=== PATIENT | female | born 1940 | race Caucasian/White ===

== ENCOUNTER 2018-07-11 10:14 | Inpatient (IN) ==
[2018-07-11 11:01] LABS: Basophils % 0.1 %; Eosinophils # 0.1 K/mcL (0.0-0.6); Eosinophils % 1.8 %; Hematocrit 28.9 % (35.3-44.9); Hemoglobin 9.5 g/dL (11.5-15.4); Immature Granulocytes % 0.4 % (0-4); Lymphocytes # 1.3 K/mcL (0.6-4.6); Lymphocytes % 18.6 %; Mean Corpuscular HGB Conc 32.9 g/dL (31.6-35.5); Mean Corpuscular Hemoglobin 26.7 pg (28.0-33.3); Mean Corpuscular Volume 81.2 fL (83.0-100.0); Mean Platelet Volume 11.7 fL (9.4-12.4); Monocytes # 0.7 K/mcL (0.0-1.3); Monocytes % 10.2 %; Neutrophils # 4.9 K/mcL (1.6-8.9); Platelet Count 238 K/mcL (140-400); Red Blood Count 3.56 M/mcL (3.82-4.97); Red Cell Distribution Width 15.7 % (11.5-14.5); Segmented Neutrophils % 68.9 %
--- NOTE | 2018-07-11 11:14 | Emergency Department Note ---
Disposition Clinical Impression: Acute kidney injury Disposition: Admitted As Inpatient Condition: Fair Time of Disposition: 12:13 Recheck wound or abnormal lab - General Chief Complaint: ED Recheck/Abnormal Lab/Rx Stated Complaint: Kidney failure Time Seen by Provider: 07/11/18 10:53 Source: patient Limitations: no limitations Nursing Notes Reviewed: Yes Vital Signs Reviewed: Yes - History of Present Illness HPI Narrative: Nontoxic-appearing 78-year-old female presents for evaluation of abnormal labs. She had laboratory results conveyed to her this morning from 8 lab draw on . Labs showed a BUN of 60, creatinine of 3.08, and a GFR of 15. 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 She complains of some shortness of breath both with exertion as well as at rest but denies any chest pain. She complains of some slight orthopnea, having noticed that she has to sleep with pillows propped behind her head at night. She is also had a 6 pound weight gain over the course of the past one week. She denies any chest pain or productive cough. She is currently being treated for cellulitis of the right lower extremity by her primary care provider with oral Bactrim and Keflex. She had a recent ultrasound of the right lower extremity to rule out a DVT. Pt Subjective Complaint: abnormal lab(s) Description of Abnormal Result: Decreased renal function Associated symptoms: shortness of breath, other (Abdominal distention, orthopnea ) - Related Data Home Medications Medication Instructions Recorded Confirmed Amiodarone [Cordarone] 200 mg PO DAILY 07/11/18 07/11/18 Amlodipine Besylate 10 mg PO DAILY 07/11/18 07/11/18 Apixaban [Eliquis] 5 mg PO BID 07/11/18 07/11/18 Aspirin Enteric Coated [Aspirin EC] 162 mg PO DAILY 07/11/18 07/11/18 Atorvastatin [Lipitor] 40 mg PO HS 07/11/18 07/11/18 Cephalexin [Keflex] 500 mg PO BID 07/11/18 07/11/18 Furosemide [Lasix] 20 mg PO DAILY 07/11/18 07/11/18 Guaifenesin [Mucinex] 600 mg PO DAILY PRN 07/11/18 07/11/18 Insulin ASPART [NovoLOG] 10 units SQ TIDWM 07/11/18 07/11/18 Insulin DETEMIR [Levemir] 26 units SQ HS 07/11/18 07/11/18 Lansoprazole [Prevacid] 30 mg PO DAILY 07/11/18 07/11/18 Oxybutynin Chloride [Ditropan Xl] 10 mg PO DAILY 07/11/18 07/11/18 Sitagliptin Phosphate [Januvia] 50 mg PO HS 07/11/18 07/11/18 Sulfamethoxazole/Trimeth DS 1 tab PO BID 07/11/18 07/11/18 [Bactrim DS] Allergies Allergy/AdvReac Type Severity Reaction Status Date / Time Procaine [From Novocain] Allergy See Verified 07/11/18 11:56 Comments All systems ED: reviewed and negative except as stated. Review of Systems: As Per HPI Constitutional: Denies: fever, chills, weakness, weight change Eyes: Denies: eye pain, eye discharge, vision change ENT ED: Denies: ear pain, throat pain, dental pain, hearing loss, epistaxis, congestion, dysphagia Cardiovascular: Denies: chest pain, palpitations, dyspnea on exertion, edema, syncope Respiratory: Reports: as per HPI, dyspnea. Denies: cough, wheezes, hemoptysis, stridor Gastrointestinal: Denies: abdominal pain, nausea, vomiting, diarrhea, constipation, hematemesis, melena, hematochezia Genitourinary: Reports: as per HPI, other (Difficulty urinating). Denies: dysuria, frequency, hematuria, discharge Musculoskeletal: Denies: back pain, neck pain, arthralgia, myalgia Integumentary: Denies: rash, abrasion, lesions Neurological: Denies: headache, weakness, numbness, paresthesias, confusion, abnormal gait, vertigo Psychiatric: Denies: anxiety, depression, suicidal thoughts, homicidal thoughts , auditory hallucinations, visual hallucinations Endocrine: Denies: fatigue Hematological/Lymphatic: Denies: easy bleeding, easy bruising Allergic/Immunologic: Denies: facial swelling, urticaria Past Medical History - Past Medical History Attestation: Yes The following information was validated with the patient. Source: patient, nursing notes reviewed Medical history: Reports: diabetes, hypertension Psychiatric history: Reports: no psych history - Social History Smoking Status: Never smoker Smokeless Tobacco Status: No Alcohol use: Reports: none Drug use: Reports: none Physical Exam - General Limitations: no limitations General appearance: alert, in no apparent distress - Head Head exam: atraumatic, normocephalic, normal inspection - Eye Eye exam: Present: normal appearance, PERRL, EOMI. Absent: nystagmus - ENT ENT exam: mucous membranes moist - Neck Neck exam: Present: normal inspection, full ROM, trachea midline - Chest Chest inspection: Present: normal inspection, symmetric chest wall rise - Respiratory Respiratory exam: Present: normal lung sounds bilaterally. Absent: respiratory distress, wheezes, stridor, accessory muscle use, prolonged expiratory phase - Cardiovascular Cardiovascular exam: Present: normal rhythm, bradycardia, normal heart sounds - Abdominal Exam Abdominal exam: Present: soft, Non-Tender, normal bowel sounds - Extremities Exam Extremities exam: Present: full ROM, tenderness (Right lower extremity), pedal edema (+2 pretibial edema noted bilaterally) - Expanded Lower Extremity Exam Lower leg exam: Present: normal inspection, erythema (Mild erythema noted distal right leg) - Back Exam Back exam: Present: normal inspection, full ROM. Absent: tenderness - Neurological Exam Neurological exam: Present: alert, oriented X3 - Psychiatric Psychiatric exam: Present: normal affect, normal mood - Skin Skin exam: Present: warm, dry, intact, normal color Course Course Narrative: I have discussed this patient's case with Dr. Brown. Dr. Brown has had a face-to- face evaluation with patient and agrees with admission to the hospitalist service with nephrology consultation. Dr. Alonso accepts the patient for admission to the hospitalist service 1400: Dr. Bishop, powerhouse electrician apprentice fuel verification technician has been made aware of this patient's case and states that he will consult. He does request a renal ultrasound be ordered. 1429: I spoke with Dr. Mota, aeronautical test engineer fuel verification technician. Dr. Mota states that cardiology will evaluate the patient in house as well. Vital Signs Temperature 98.0 F 07/11/18 10:16 Pulse Rate 52 07/11/18 10:16 Respiratory Rate 15 07/11/18 10:16 Blood Pressure 148/66 07/11/18 10:16 O2 Sat by Pulse Oximetry 99 07/11/18 10:16 Temperature 98.0 F 07/11/18 10:27 Pulse Rate 52 08/24/18 10:27 Respiratory Rate 20 07/11/18 14:11 Blood Pressure 138/64 07/11/18 14:11 O2 Sat by Pulse Oximetry 99 07/11/18 10:27 Oxygen Delivery Oxygen Delivery Room Air Recheck wound or abnormal lab - MDM Narrative Medical decision making narrative: The patient's troponin is elevated at 0.04 however she denies any complaints of chest pain. Likely sequelae of her decreased kidney function. - Medical Records Medical records reviewed: Yes I reviewed the patient's medical records. - Lab Data Lab results reviewed: Yes I reviewed the patient's lab results. Lab results narrative: Lab Results 07/11/18 07/11/18 07/11/18 Range/Units 10:52 10:52 11:16 WBC 7.1 (4.3-11.1) K/mcL RBC 3.56 L (3.82-4.97) M/mcL Hgb 9.5 L (11.5-15.4) g/dL Hct 28.9 L (35.3-44.9) % MCV 81.2 L (83.0-100.0) fL MCH 26.7 L (28.0-33.3) pg MCHC 32.9 (31.6-35.5) g/dL RDW 15.7 H (11.5-14.5) % Plt Count 238 (140-400) K/mcL MPV 11.7 (9.4-12.4) fL Immature Gran % 0.4 (0-4) % Seg Neutrophils % 68.9 % Lymphocytes % 18.6 % Monocytes % 10.2 % Eosinophils % 1.8 % Basophils % 0.1 % Neutrophils # 4.9 (1.6-8.9) K/mcL Lymphocytes # 1.3 (0.6-4.6) K/mcL Monocytes # 0.7 (0.0-1.3) K/mcL Eosinophils # 0.1 (0.0-0.6) K/mcL Basophils # 0.0 (0.0-0.2) K/mcL Sodium 128 L (136-145) mEq/L Potassium 5.5 H (3.5-5.1) mEq/L Chloride 100 (98-107) mEq/L Carbon Dioxide 19 L (23-29) mEq/L BUN 62 H (8-23) mg/dL Creatinine 3.42 H (0.60-1.20) mg/dL Est GFR ( Amer) 16 L (> 60) Est GFR (Non-Af Amer) 13 L (> 60) BUN/Creatinine Ratio 18 (6-26) Glucose 77 (70-105) mg/dL Calculated Osmolality 282 (280-300) Calcium 9.1 (8.6-10.3) mg/dL Phosphorus 4.2 (2.7-4.5) mg/dL Magnesium 2.8 H (1.6-2.6) mg/dL Troponin I 0.04 H* (< 0.04) ng/mL B-Natriuretic Peptide 636 H (Less than 100) pg/mL Urine Color (Yellow) Urine Clarity (Clear) Urine pH (5.0-8.0) pH Units Ur Specific [place] (1.010-1.025) Urine Protein (Neg-Trace) mg/dL Urine Glucose (UA) (Normal) mg/dL Urine Ketones (Negative) mg/dL Urine Blood (Negative) Urine Nitrite (Negative) Urine Bilirubin (Negative) Urine Urobilinogen (Normal) mg/dL Ur Leukocyte Esterase (Negative) Ur Culture Indicated? (NO) 07/11/18 Range/Units 12:57 WBC (4.3-11.1) K/mcL RBC (3.82-4.97) M/mcL Hgb (11.5-15.4) g/dL Hct (35.3-44.9) % MCV (83.0-100.0) fL MCH (28.0-33.3) pg MCHC (31.6-35.5) g/dL RDW (11.5-14.5) % Plt Count (140-400) K/mcL MPV (9.4-12.4) fL Immature Gran % (0-4) % Seg Neutrophils % % Lymphocytes % % Monocytes % % Eosinophils % % Basophils % % Neutrophils # (1.6-8.9) K/mcL Lymphocytes # (0.6-4.6) K/mcL Monocytes # (0.0-1.3) K/mcL Eosinophils # (0.0-0.6) K/mcL Basophils # (0.0-0.2) K/mcL Sodium (136-145) mEq/L Potassium (3.5-5.1) mEq/L Chloride (98-107) mEq/L Carbon Dioxide (23-29) mEq/L BUN (8-23) mg/dL Creatinine (0.60-1.20) mg/dL Est GFR ( Amer) (> 60) Est GFR (Non-Af Amer) (> 60) BUN/Creatinine Ratio (6-26) Glucose (70-105) mg/dL Calculated Osmolality (280-300) Calcium (8.6-10.3) mg/dL Phosphorus (2.7-4.5) mg/dL Magnesium (1.6-2.6) mg/dL Troponin I (< 0.04) ng/mL B-Natriuretic Peptide (Less than 100) pg/mL Urine Color Yellow (Yellow) Urine Clarity Clear (Clear) Urine pH 6.0 (5.0-8.0) pH Units Ur Specific [place] 1.016 (1.010-1.025) Urine Protein Negative (Neg-Trace) mg/dL Urine Glucose (UA) Normal (Normal) mg/dL Urine Ketones Negative (Negative) mg/dL Urine Blood Negative (Negative) Urine Nitrite Negative (Negative) Urine Bilirubin Negative (Negative) Urine Urobilinogen Normal (Normal) mg/dL Ur Leukocyte Esterase Negative (Negative) Ur Culture Indicated? NO (NO) Result diagrams: 07/11/18 10:52 07/11/18 10:52 Lab Results 07/11/18 07/11/18 07/11/18 Range/Units 10:52 10:52 11:16 WBC 7.1 (4.3-11.1) K/mcL RBC 3.56 L (3.82-4.97) M/mcL Hgb 9.5 L (11.5-15.4) g/dL Hct 28.9 L (35.3-44.9) % MCV 81.2 L (83.0-100.0) fL MCH 26.7 L (28.0-33.3) pg MCHC 32.9 (31.6-35.5) g/dL RDW 15.7 H (11.5-14.5) % Plt Count 238 (140-400) K/mcL MPV 11.7 (9.4-12.4) fL Immature Gran % 0.4 (0-4) % Seg Neutrophils % 68.9 % Lymphocytes % 18.6 % Monocytes % 10.2 % Eosinophils % 1.8 % Basophils % 0.1 % Neutrophils # 4.9 (1.6-8.9) K/mcL Lymphocytes # 1.3 (0.6-4.6) K/mcL Monocytes # 0.7 (0.0-1.3) K/mcL Eosinophils # 0.1 (0.0-0.6) K/mcL Basophils # 0.0 (0.0-0.2) K/mcL Sodium 128 L (136-145) mEq/L Potassium 5.5 H (3.5-5.1) mEq/L Chloride 100 (98-107) mEq/L Carbon Dioxide 19 L (23-29) mEq/L BUN 62 H (8-23) mg/dL Creatinine 3.42 H (0.60-1.20) mg/dL Est GFR ( Amer) 16 L (> 60) Est GFR (Non-Af Amer) 13 L (> 60) BUN/Creatinine Ratio 18 (6-26) Glucose 77 (70-105) mg/dL Calculated Osmolality 282 (280-300) Calcium 9.1 (8.6-10.3) mg/dL Phosphorus 4.2 (2.7-4.5) mg/dL Magnesium 2.8 H (1.6-2.6) mg/dL Troponin I 0.04 H* (< 0.04) ng/mL B-Natriuretic Peptide 636 H (Less than 100) pg/mL Urine Color (Yellow) Urine Clarity (Clear) Urine pH (5.0-8.0) pH Units Ur Specific [place] (1.010-1.025) Urine Protein (Neg-Trace) mg/dL Urine Glucose (UA) (Normal) mg/dL Urine Ketones (Negative) mg/dL Urine Blood (Negative) Urine Nitrite (Negative) Urine Bilirubin (Negative) Urine Urobilinogen (Normal) mg/dL Ur Leukocyte Esterase (Negative) Ur Culture Indicated? (NO) 07/11/18 Range/Units 12:57 WBC (4.3-11.1) K/mcL RBC (3.82-4.97) M/mcL Hgb (11.5-15.4) g/dL Hct (35.3-44.9) % MCV (83.0-100.0) fL MCH (28.0-33.3) pg MCHC (31.6-35.5) g/dL RDW (11.5-14.5) % Plt Count (140-400) K/mcL MPV (9.4-12.4) fL Immature Gran % (0-4) % Seg Neutrophils % % Lymphocytes % % Monocytes % % Eosinophils % % Basophils % % Neutrophils # (1.6-8.9) K/mcL Lymphocytes # (0.6-4.6) K/mcL Monocytes # (0.0-1.3) K/mcL Eosinophils # (0.0-0.6) K/mcL Basophils # (0.0-0.2) K/mcL Sodium (136-145) mEq/L Potassium (3.5-5.1) mEq/L Chloride (98-107) mEq/L Carbon Dioxide (23-29) mEq/L BUN (8-23) mg/dL Creatinine (0.60-1.20) mg/dL Est GFR ( Amer) (> 60) Est GFR (Non-Af Amer) (> 60) BUN/Creatinine Ratio (6-26) Glucose (70-105) mg/dL Calculated Osmolality (280-300) Calcium (8.6-10.3) mg/dL Phosphorus (2.7-4.5) mg/dL Magnesium (1.6-2.6) mg/dL Troponin I (< 0.04) ng/mL B-Natriuretic Peptide (Less than 100) pg/mL Urine Color Yellow (Yellow) Urine Clarity Clear (Clear) Urine pH 6.0 (5.0-8.0) pH Units Ur Specific [place] 1.016 (1.010-1.025) Urine Protein Negative (Neg-Trace) mg/dL Urine Glucose (UA) Normal (Normal) mg/dL Urine Ketones Negative (Negative) mg/dL Urine Blood Negative (Negative) Urine Nitrite Negative (Negative) Urine Bilirubin Negative (Negative) Urine Urobilinogen Normal (Normal) mg/dL Ur Leukocyte Esterase Negative (Negative) Ur Culture Indicated? NO (NO) - Radiology Data Radiology results reviewed: Yes I reviewed the patient's radiology results. Chest X-Ray 07/11/18 11:06 IMPRESSION: No acute cardiopulmonary process identified. D/ / Sal Bartlett MD / Sal Bartlett MD Interpreting Provider: Sal Bartlett MD - EKG Data EKG attestation: Yes I reviewed and interpreted this EKG. EKG results narrative: EKG reviewed by Dr. Brown as well. EKG shows a sinus bradycardia with a right bundle branch block at a rate of 47 bpm. UT interval 190, QRS duration 151, QT/ QTc interval 497/440. No ectopy noted. I see elevation. No significant changes when compared to an EKG dated from 05/11/16.
[2018-07-11 11:20] LABS: Calcium 9.1 mg/dL (8.6-10.3); Magnesium 2.8 mg/dL (1.6-2.6); Phosphorous 4.2 mg/dL (2.7-4.5); Potassium 5.5 mEq/L (3.5-5.1)
[2018-07-11 11:42] LABS: Troponin I 0.04 ng/mL (< 0.04)
[2018-07-11] MEDS ORDERED: Insulin Human Regular 10 UNIT in 0.9 % Sodium Chloride 10 ML IV ONE (11:50)
--- NOTE | 2018-07-11 11:52 | Emergency Department Note ---
Disposition Clinical Impression: Acute kidney injury Disposition: Admitted As Inpatient Condition: Fair Referrals: Benny Pabon DO [Primary Care Provider] - Forms: ED Satisfaction Letter General Adult HPI - General Chief complaint: ED Recheck/Abnormal Lab/Rx Stated complaint: Kidney failure Time Seen by Provider: 07/11/18 10:53 Source: patient Limitations: no limitations - History of Present Illness Pain Scale: 0 - Related Data Home Medications Medication Instructions Recorded Confirmed Amiodarone [Cordarone] 200 mg PO DAILY 07/11/18 07/11/18 Amlodipine Besylate 10 mg PO DAILY 07/11/18 07/11/18 Apixaban [Eliquis] 5 mg PO BID 07/11/18 07/11/18 Aspirin Enteric Coated [Aspirin EC] 162 mg PO DAILY 07/11/18 07/11/18 Atorvastatin [Lipitor] 40 mg PO HS 07/11/18 07/11/18 Cephalexin [Keflex] 500 mg PO BID 07/11/18 07/11/18 Furosemide [Lasix] 20 mg PO DAILY 07/11/18 07/11/18 Guaifenesin [Mucinex] 600 mg PO DAILY PRN 07/11/18 07/11/18 Insulin ASPART [NovoLOG] 10 units SQ TIDWM 07/11/18 07/11/18 Insulin DETEMIR [Levemir] 26 units SQ HS 07/11/18 07/11/18 Lansoprazole [Prevacid] 30 mg PO DAILY 07/11/18 07/11/18 Oxybutynin Chloride [Ditropan Xl] 10 mg PO DAILY 07/11/18 07/11/18 Sitagliptin Phosphate [Januvia] 50 mg PO HS 07/11/18 07/11/18 Sulfamethoxazole/Trimeth DS 1 tab PO BID 07/11/18 07/11/18 [Bactrim DS] Allergies Allergy/AdvReac Type Severity Reaction Status Date / Time Procaine [From Novocain] Allergy See Verified 07/11/18 11:56 Comments Constitutional: Denies: fever, chills, weakness, weight change Eyes: Denies: eye pain, eye discharge, vision change ENT ED: Denies: ear pain, throat pain, dental pain, hearing loss, epistaxis, congestion, dysphagia Cardiovascular: Denies: chest pain, palpitations, dyspnea on exertion, edema, syncope Respiratory: Reports: as per HPI, dyspnea. Denies: cough, wheezes, hemoptysis, stridor Gastrointestinal: Denies: abdominal pain, nausea, vomiting, diarrhea, constipation, hematemesis, melena, hematochezia Genitourinary: Reports: as per HPI, other (Difficulty urinating). Denies: dysuria, frequency, hematuria, discharge Musculoskeletal: Denies: back pain, neck pain, arthralgia, myalgia Integumentary: Denies: rash, abrasion, lesions Neurological: Denies: headache, weakness, numbness, paresthesias, confusion, abnormal gait, vertigo Psychiatric: Denies: anxiety, depression, suicidal thoughts, homicidal thoughts , auditory hallucinations, visual hallucinations Endocrine: Denies: fatigue Hematological/Lymphatic: Denies: easy bleeding, easy bruising Allergic/Immunologic: Denies: facial swelling, urticaria Past Medical History - Past Medical History Medical history: Reports: diabetes, hypertension Psychiatric history: Reports: no psych history - Social History Smoking Status: Never smoker Smokeless Tobacco Status: No Alcohol use: Reports: none Drug use: Reports: none Physical Exam - General Limitations: no limitations General appearance: alert, in no apparent distress Course Vital Signs Temperature 98.0 F 07/11/18 10:16 Pulse Rate 52 07/11/18 10:16 Respiratory Rate 15 07/11/18 10:16 Blood Pressure 148/66 07/11/18 10:16 O2 Sat by Pulse Oximetry 99 07/11/18 10:16 Temperature 98.0 F 07/11/18 10:27 Pulse Rate 52 07/11/18 10:27 Respiratory Rate 15 07/11/18 10:27 Blood Pressure 148/66 07/11/18 10:27 O2 Sat by Pulse Oximetry 99 07/11/18 10:27 Oxygen Delivery Oxygen Delivery Room Air Medical Decision Making - Lab Data Result diagrams: 07/11/18 10:52 07/11/18 10:52 Lab Results 07/11/18 07/11/18 07/11/18 Range/Units 10:52 10:52 11:16 WBC 7.1 (4.3-11.1) K/mcL RBC 3.56 L (3.82-4.97) M/mcL Hgb 9.5 L (11.5-15.4) g/dL Hct 28.9 L (35.3-44.9) % MCV 81.2 L (83.0-100.0) fL MCH 26.7 L (28.0-33.3) pg MCHC 32.9 (31.6-35.5) g/dL RDW 15.7 H (11.5-14.5) % Plt Count 238 (140-400) K/mcL MPV 11.7 (9.4-12.4) fL Immature Gran % 0.4 (0-4) % Seg Neutrophils % 68.9 % Lymphocytes % 18.6 % Monocytes % 10.2 % Eosinophils % 1.8 % Basophils % 0.1 % Neutrophils # 4.9 (1.6-8.9) K/mcL Lymphocytes # 1.3 (0.6-4.6) K/mcL Monocytes # 0.7 (0.0-1.3) K/mcL Eosinophils # 0.1 (0.0-0.6) K/mcL Basophils # 0.0 (0.0-0.2) K/mcL Sodium 128 L (136-145) mEq/L Potassium 5.5 H (3.5-5.1) mEq/L Chloride 100 (98-107) mEq/L Carbon Dioxide 19 L (23-29) mEq/L BUN 62 H (8-23) mg/dL Creatinine 3.42 H (0.60-1.20) mg/dL Est GFR ( Amer) 16 L (> 60) Est GFR (Non-Af Amer) 13 L (> 60) BUN/Creatinine Ratio 18 (6-26) Glucose 77 (70-105) mg/dL Calculated Osmolality 282 (280-300) Calcium 9.1 (8.6-10.3) mg/dL Phosphorus 4.2 (2.7-4.5) mg/dL Magnesium 2.8 H (1.6-2.6) mg/dL Troponin I 0.04 H* (< 0.04) ng/mL B-Natriuretic Peptide 636 H (Less than 100) pg/mL Urine Color (Yellow) Urine Clarity (Clear) Urine pH (5.0-8.0) pH Units Ur Specific [place] (1.010-1.025) Urine Protein (Neg-Trace) mg/dL Urine Glucose (UA) (Normal) mg/dL Urine Ketones (Negative) mg/dL Urine Blood (Negative) Urine Nitrite (Negative) Urine Bilirubin (Negative) Urine Urobilinogen (Normal) mg/dL Ur Leukocyte Esterase (Negative) Ur Culture Indicated? (NO) 07/11/18 Range/Units 12:57 WBC (4.3-11.1) K/mcL RBC (3.82-4.97) M/mcL Hgb (11.5-15.4) g/dL Hct (35.3-44.9) % MCV (83.0-100.0) fL MCH (28.0-33.3) pg MCHC (31.6-35.5) g/dL RDW (11.5-14.5) % Plt Count (140-400) K/mcL MPV (9.4-12.4) fL Immature Gran % (0-4) % Seg Neutrophils % % Lymphocytes % % Monocytes % % Eosinophils % % Basophils % % Neutrophils # (1.6-8.9) K/mcL Lymphocytes # (0.6-4.6) K/mcL Monocytes # (0.0-1.3) K/mcL Eosinophils # (0.0-0.6) K/mcL Basophils # (0.0-0.2) K/mcL Sodium (136-145) mEq/L Potassium (3.5-5.1) mEq/L Chloride (98-107) mEq/L Carbon Dioxide (23-29) mEq/L BUN (8-23) mg/dL Creatinine (0.60-1.20) mg/dL Est GFR ( Amer) (> 60) Est GFR (Non-Af Amer) (> 60) BUN/Creatinine Ratio (6-26) Glucose (70-105) mg/dL Calculated Osmolality (280-300) Calcium (8.6-10.3) mg/dL Phosphorus (2.7-4.5) mg/dL Magnesium (1.6-2.6) mg/dL Troponin I (< 0.04) ng/mL B-Natriuretic Peptide (Less than 100) pg/mL Urine Color Yellow (Yellow) Urine Clarity Clear (Clear) Urine pH 6.0 (5.0-8.0) pH Units Ur Specific [place] 1.016 (1.010-1.025) Urine Protein Negative (Neg-Trace) mg/dL Urine Glucose (UA) Normal (Normal) mg/dL Urine Ketones Negative (Negative) mg/dL Urine Blood Negative (Negative) Urine Nitrite Negative (Negative) Urine Bilirubin Negative (Negative) Urine Urobilinogen Normal (Normal) mg/dL Ur Leukocyte Esterase Negative (Negative) Ur Culture Indicated? NO (NO) Critical Care Time Critical Care Time: Yes Total Critical Care Time: 40 Attestation: Critical care performed: Time is exclusive of separately billable procedures. Time includes: direct patient care, patient reassessment, coordination of patient care, interpretation of data (laboratory data, radiology data, and respiratory data), review of patient's medical records, medical consultation and documentation of patient care. Procedures included in critical care time: Procedures excluded from critical care time: Attestation Statement - Attestation Attestation: or this encounter, I have reviewed the FREEZER TUNNEL OPERATOR or PA documentation, treatment plan, and medical decision making; and I have had face to face time with this patient Patient presents to the ED with abnormal labs. Patient had outpatient labs drawn by her PCP that showed her GFR low. On examination she has not in any acute distress. Heart slow but regular. Lungs clear. She does have some bilateral lower extremities edema. Plan. The patient's GFR is low. Her potassium is slightly elevated. Her EKG shows sinus bradycardia. QRS widening. We will treat the hyperkalemia. We will discuss with nephrology. Patient will be admitted to medicine. I discussed this patient with Dr. Bishop ordnance truck installation mechanic for nephrology. He will evaluate the patient. No further questions at this time other than a renal ultrasound. Chest X-Ray 07/11/18 11:06 IMPRESSION: No acute cardiopulmonary process identified. D/ / Sal Bartlett MD / Sal Bartlett MD Interpreting Provider: Sal Bartlett MD For this encounter, I have reviewed the FREEZER TUNNEL OPERATOR or PA documentation, treatment plan, and medical decision making; and I have had face to face time with this patient.
[2018-07-11] MEDS: *HR* Dextrose 50 % in Water (Syg) 50 ML SYRINGE IVP ONE ×2 (13:02→15:45)
[2018-07-11 13:11] LABS: Bilirubin,Urine Negative (Negative); Blood,Urine Negative (Negative); Clarity,Urine Clear (Clear); Color,Urine Yellow (Yellow); Glucose,Urine (UA) Normal (Normal); Ketones,Urine Negative (Negative); Leukocyte Esterase,Urine Negative (Negative); Nitrite,Urine Negative (Negative); Protein,Urine Negative (Neg-Trace); Specific Gravity,Urine 1.016 (1.010-1.025); Urobilinogen,Urine Normal (Normal)
[2018-07-11] MEDS ORDERED: Furosemide 40 MG/4 ML VIAL IVP ONE (13:12)
[2018-07-11] MEDS ORDERED: Naloxone 0.4 MG/ML INJ IVP PRN (14:45)
[2018-07-11] MEDS ORDERED: *HR* Heparin 5,000 UNIT/ML VIAL IVP PRN ×2 (15:05)
[2018-07-11] MEDS ORDERED: *HR* Heparin 5,000 UNIT/ML VIAL IVP ONE (15:05)
--- NOTE | 2018-07-11 15:07 | Nephrology Progress Note ---
Date of Encounter: 07/11/18 Time of Encounter: 15:00 - Assessment and Plan (1) Acute kidney injury Current Visit: Yes Status: Acute 78F with PMHx HTN, DM type 2, CABG, on amiodarone presents with NORBERT. SCr 3.42, baseline of 1.1 UA is unremarkable Patient on lasix at home, she is also hyponatremic and hyperkalemic Gentle hydration with 500ml at 75ml/hr No emergent need for HD at this time, but if kidney function continues to deteriorate, she might require temporary HD Pending repeat echo. pending urine osm, Na, Cr, eosinophils. (2) Hyponatremia Current Visit: Yes Status: Acute Asymptomatic. Hypokalemia of 128. Unknown etiology. We will obtain serum osm, urine osm, Na, Cr. Gentle hydration with 500ml bolus at 75ml/hr Recheck Na q2 hours (3) Hyperkalemia Current Visit: Yes Status: Acute Gentle hydration with 500ml at 75ml/hr See above. Subjective Principal diagnosis: Abnormal labs Interval history: 78F with PMHx of HTN, diabetes type II on insulin, CABG without stents on 2017 on Eloquis, A. nicola on amiodarone presents to ED after abnormal outpatient labs. Labs demonstrated declined kidney function with BUN 60, Creatinine 3.08, and GFR 15, and she was advised to come to the ED. Patient reports that she has experienced worsening SOB and difficulty with voiding since her CABG. She also admits to nausea, vomiting, fatigue, 6lb weight gain over the past week. Denies history of liver disease, kidney disease, cancer, or other recent surgeries aside from her CABG. She takes lasix at home for lower extremity edema. Denies side effects with medication. She started her amiodarone in Mar, 2018, after her CABG reports decreased heart rate since then. In addition, she is currently on Bactrim and Keflex for right lower extremity cellulitus. She also reports that her diabetes is well controlled with insulin. At ED, CXR is unremarkable. EKG demonstrates bradycardia with RBBB, AV block, QT prolongation. Denies confusion, headaches, chest pain, palpitations, productive cough, abdominal pain, diarrhea, abnormal bleeding. Does admit to feeling dehydrated and poor appetite. Objective - Vital Signs Vital signs: Vital Signs Pulse Resp BP Pulse Ox 07/11/18 14:30 55 16 149/44 97 08/24/18 14:11 20 138/64 - General Appearance Exam: General appearance: alert, in no apparent distress - Head Head exam: atraumatic, normocephalic, normal inspection - Eye Eye exam: Present: normal appearance, EOMI. Absent: nystagmus - ENT ENT exam: mucous membranes moist - Neck Neck exam: Present: normal inspection, full ROM, trachea midline - Chest Chest inspection: Present: normal inspection, symmetric chest wall rise - Respiratory Respiratory exam: Present: normal lung sounds bilaterally. Absent: respiratory distress, wheezes, stridor, accessory muscle use, prolonged expiratory phase - Cardiovascular Cardiovascular exam: Present: normal rhythm, bradycardia, normal heart sounds. systolic murmur appreciated. - Abdominal Exam Abdominal exam: Present: soft, Non-Tender, normal bowel sounds, no guarding - Extremities Exam Extremities exam: Present: full ROM, tenderness (Right lower extremity), pedal edema (+2 pretibial edema noted bilaterally) - Expanded Lower Extremity Exam Lower leg exam: Present: normal inspection, erythema (Mild erythema noted distal right leg) - Back Exam Back exam: Present: normal inspection, full ROM. Absent: tenderness - Neurological Exam Neurological exam: Present: alert, oriented X3 - Psychiatric Psychiatric exam: Present: normal affect, normal mood - Skin Skin exam: Present: warm, dry, intact, normal color - Lab 07/11/18 10:52 07/11/18 10:52 Most recent lab results Calcium 9.1 mg/dL (8.6-10.3) 07/11/18 10:52 Phosphorus 4.2 mg/dL (2.7-4.5) 07/11/18 10:52 Magnesium 2.8 mg/dL (1.6-2.6) H 07/11/18 10:52 Consult Discharge Plan - Plan Referrals: Benny Pabon DO [Primary Care Provider] -
[2018-07-11] MEDS ORDERED: Heparin 25,000 UNIT/500 ML D5W 25,000 UNIT/500 ML BAG IVC SCH (15:15)
[2018-07-11] MEDS ORDERED: *HR* Dextrose 50 % in Water (Syg) 50 ML SYRINGE ONE (15:26)
--- NOTE | 2018-07-11 15:39 | Cardiology Consult Note ---
<MancillaJohnny S - Last Filed: 07/11/18 16:46> Date of Encounter: 07/11/18 Time of Encounter: 15:33 Assessment and Plan (1) Amiodarone toxicity Current Visit: Yes Status: Deleted Pt started on Amiodarone in february for a fib -currently in sinus rhythm -bracycardic, HR 55, pt c/o no palpiltations or chest pain s/s of weakness, N/V, feeling off balance, which is consistent with amiodarone toxicity CXR showed no signs of pulmonary toxicity -The mediastinal and cardiac contours are stable. The lungs are clear. There is no focal consolidation, pleural effusion or pneumothorax evident. The bones are unremarkable. Plan: -telemetry monitoring -stop amiodarone -will update with attending recommendations -check a TSH, LFT's Qualifiers: Encounter type: initial encounter Injury intent: accidental or unintentional Qualified Code(s): T46.2X1A - Poisoning by other antidysrhythmic drugs, accidental (unintentional), initial encounter (2) Acute kidney injury Current Visit: Yes Status: Acute Pt was admitted due to abnormal labs after going to the doctor on saturday. -was being empirically tx for cellulitis for LE swelling and redness with kephlax and tmp smx. pt only urinating 1x daily right now -potassium of 5.5, sodium 128 -creatinine 3.42 on admission, baseline is 1.1 -BUN 16 -GFR 13 on admission UA is unremarkable NORBERT can be due to TMP SMX or kephlex. Pt has never used bactrim before and will r/o AIN Plan: -insert mendoza cath -strict I&O's -check CK -check urine eosinophils -check serum osmolality -check urine sodium -diuresis as per nephrology -will follow hemodialysis recommendations as per nephrology (3) Elevated troponin Current Visit: Yes Status: Acute Troponin of 0.04 on admission -most likely secondary to NORBERT -pt has no c/o active chest pain, palpiltations, SOB Plan: -ECHO pending -trend troponins -cardiac monitoring -monitor I&O's (4) HTN (hypertension) Current Visit: No Status: Chronic BP of 115/62 on admission -adequate control Plan: -continue home amlodipine Qualifiers: Hypertension type: essential hypertension Qualified Code(s): I10 - Essential (primary) hypertension Discussion w patient/family: The assessment and plan as outlined above was discussed with the patient and/or family members who expressed understanding and agreement. All questions were answered. Thank you for involving us in the care of your patient. Please call with any questions. History of Present Illness Consult date: 07/11/18 Requesting physician: Zachariah Zimmerman Consult reason: bradycardia, on amiodarone Chief complaint: "abnormal labs" History of present illness: Ms. Powell is a 78 year old female with PMH of HTN, T2DM, paroxysmal a fib, and is s/p triple bypass at [facility] in February. The pt was admitted due to abnormal labs after going to the doctor on saturday. He called her to tell her that her labs were abnormal and that she should come to the hospital. The pt is seen by Dr. Shah as her PCP. The daughter tells me that the PCP thought the pt was having blood clots, which were ruled out on ultrasound. The pt was being empirically tx for cellulitis for LE swelling and redness with kephlax and tmp smx. The pt has had multiple episodes of nausea and vomiting without blood over the last few days. She has been falling multiple times as well the last week and has been confused before the falls. She is very inactive and hardly moves according to the daughter. The falls are due to imbalance, not syncope. She is only urinating 1 x daily right now. The pt has never had a cardiac workup. -no hx of stress test, ECHO -the pt reportedly had "3 heart attacks" the night before her CABG The pt is on Amiodarone for pA fib. The daughter states the pt hasn't complained of any cardiac related s/s, such as chest pain, palpiltations, syncope, presyncope, PND, orthopnea. Fluids - given D50, glucose in the 40's; 75cc/hr NS Electrolytes - sodium 128, potassium 5.5 Nutritoin -cardiac/diabetic/renal diet DVT prophylaxis - on eliquis GI prophylais - on lansoprazole Past Med Surg Social Fam HX - Past Medical History Medical history: diabetes, hypertension Psychiatric history: no psych history - Past Surgical History Additional surgical history: triple bypass - Social History Smoking Status: Never smoker Smokeless Tobacco Status: No Alcohol use: none Drug use: none - Family History Father History Unknown: Yes Medications and Allergies Amiodarone [Cordarone] 200 mg PO DAILY 07/11/18 [History] Amlodipine Besylate 10 mg PO DAILY 07/11/18 [History] Apixaban [Eliquis] 5 mg PO BID 07/11/18 [History] Aspirin Enteric Coated [Aspirin EC] 162 mg PO DAILY 07/11/18 [History] Atorvastatin [Lipitor] 40 mg PO HS 07/11/18 [History] Cephalexin [Keflex] 500 mg PO BID 07/11/18 [History] Furosemide [Lasix] 20 mg PO DAILY 07/11/18 [History] Guaifenesin [Mucinex] 600 mg PO DAILY PRN 07/11/18 [History] Insulin ASPART [NovoLOG] 10 units SQ TIDWM 07/11/18 [History] Insulin DETEMIR [Levemir] 26 units SQ HS 07/11/18 [History] Lansoprazole [Prevacid] 30 mg PO DAILY 07/11/18 [History] Oxybutynin Chloride [Ditropan Xl] 10 mg PO DAILY 07/11/18 [History] Sitagliptin Phosphate [Januvia] 50 mg PO HS 07/11/18 [History] Sulfamethoxazole/Trimeth DS [Bactrim DS] 1 tab PO BID 07/11/18 [History] 3 Allergy/AdvReac Type Severity Reaction Status Date / Time Procaine [From Novocain] Allergy See Verified 07/11/18 11:56 Comments All Systems Review: The remainder of the systems were reviewed and are negative - Constitutional Constitutional: fatigue, weakness, no fever(s) - EENT Nose, mouth and throat: epistaxis - Cardiovascular Cardiovascular: leg edema, lightheadedness, slow heart rate, no chest pain at rest, no chest pain with exertion, no dyspnea at rest, no dyspnea on exertion, no irregular heart rhythm, no orthopnea, no palpitations, no paroxysmal nocturnal dyspnea, no syncope - Respiratory Respiratory: no cough, no dyspnea - Gastrointestinal Gastrointestinal: no abdominal pain, no diarrhea, no melena - Genitourinary Genitourinary: no dysuria, no hematuria - Neurological Neurological: dizziness, focal weakness, no numbness, no syncope, no tingling - Hematological/Lymphatic Hematologic/Lymphatic: easy bleeding Physical Examination Vital Signs, Last 4 Hours Pulse Resp BP Pulse Ox 07/11/18 14:30 55 16 149/44 97 07/11/18 14:11 20 138/64 General: Conversant HEENT: Atraumatic, Normocephaly Neck: No JVD Cardiac: Normal S1 and S2, Other (bradycardic) Lungs: Normal Breath Sounds, No Wheeze, Rales, Rhonchi Neuro: Alert and responsive Abdomen: Soft, Non-Tender Skin: Other (right leg cellulitis) Musculoskeletal: No Chest Wall Tenderness Extremities: Other (1+ pitting LE edema B/L) Results 07/11/18 10:52 07/11/18 10:52 Consult Discharge Plan - Plan Referrals: Benny Pabon DO [Primary Care Provider] - <Patricia Mota - Last Filed: 07/11/18 18:54> Date of Encounter: 07/11/18 - Attending Attestation I examined this patient and my medical decision-making was reviewed with the Resident Physician. I agree with the documented findings, disposition and treatment plan as described except to the extent set forth below. 78F presenting with acute onset of weakness and fatigue in setting of metabolic derangement. Taking Bactrim and Keflex as outpatient for cellulitis. Now presenting with acute renal failure, GFR 13 and hyperkalemia. ECG demonstrates SB with normal intervals and no acute findings. Telemetry demonstrates average HR 46 bpm without pauses. Patient states that she is feeling better. NAD, AAOx3. Hemodynamically stable. Soft systolic murmur on exam. Impression/Plan: 1. Bradycardia - heart rate 40s with otherwise normal findings on ECG and no pauses on telemetry. Suspect electrical disturbance in part secondary to acute renal failure with severely reduced GFR and hyperkalemia. She was on Abx for cellulitis that may have caused ARF. Previously on Amiodarone since February 2018 for post op AFIB doing well on this medication. Do not suspect that amiodarone is the primary culprit in her clinical presentation. The patient already reports feeling better despite amiodarone still systemically present. However, incidentally found are elevated LFTs and abnormal TSH. It is reasonable to stop this medication at this time. She has an upcoming appointment to establish with [facility]. 2. PAF: Post op after bypass. Patient placed on amio and Eliquis. Amiodarone is being stopped. Eliquis will need to be help given ARF. Continue aspirin for now. Can consider restarting Eliquis when renal function normalizes. No further recommendations at this time. Please call with questions. Will sign off. Assessment and Plan Discussion w patient/family: The assessment and plan as outlined above was discussed with the patient and/or family members who expressed understanding and agreement. All questions were answered. Thank you for involving us in the care of your patient. Please call with any questions. History of Present Illness History of present illness: Ms. Powell is a 78 year old female All Systems Review: The remainder of the systems were reviewed and are negative Results 07/11/18 16:33 07/11/18 16:33
--- NOTE | 2018-07-11 15:53 | Nephrology Consult Note ---
Date of Encounter: 07/11/18 Time of Encounter: 14:30 Assessment and Plan (1) Acute kidney injury Current Visit: Yes Status: Acute 78F with PMHx HTN, DM type 2, CABG, on amiodarone presents with NORBERT. SCr 3.42, baseline of 1.1 UA is unremarkable Patient on lasix at home, she is also hyponatremic and hyperkalemic. Hold lasix for now. Gentle hydration with 500ml at 75ml/hr No emergent need for HD at this time, but if kidney function continues to deteriorate, she might require temporary HD Pending repeat echo. pending urine osm, Na, Cr, eosinophils. (2) Hyponatremia Current Visit: Yes Status: Acute Asymptomatic. Hypokalemia of 128. Unknown etiology. We will obtain serum osm, urine osm, Na, Cr. Gentle hydration with 500ml bolus at 75ml/hr Recheck Na q2 hours (3) Hyperkalemia Current Visit: Yes Status: Acute Gentle hydration with 500ml at 75ml/hr See above. (4) History of atrial fibrillation Current Visit: Yes Status: Acute History of A. fib on amiodarone. s/p CABG w/o stents on Eloquis. Cardiology consulted and recommendations appreciated. History of Present Illness - Reason for Consult Consult date: 07/11/18 Acute Kidney Injury - Chief Complaint Abnormal labs - History of Present Illness 78F with PMHx of HTN, diabetes type II on insulin, CABG without stents on 2017 on Eloquis, [place]. fib on amiodarone presents to ED after abnormal outpatient labs. Labs demonstrated declined kidney function with BUN 60, Creatinine 3.08, and GFR 15, and she was advised to come to the ED. Patient reports that she has experienced worsening SOB and difficulty with voiding since her CABG. She also admits to nausea, vomiting, fatigue, 6lb weight gain over the past week. Denies history of liver disease, kidney disease, cancer, or other recent surgeries aside from her CABG. She takes lasix at home for lower extremity edema. Denies side effects with medication. She started her amiodarone in Mar, 2018, after her CABG reports decreased heart rate since then. In addition, she is currently on Bactrim and Keflex for right lower extremity cellulitus. She also reports that her diabetes is well controlled with insulin. At ED, CXR is unremarkable. EKG demonstrates bradycardia with RBBB, AV block, QT prolongation. Denies confusion, headaches, chest pain, palpitations, productive cough, abdominal pain, diarrhea, abnormal bleeding. Does admit to feeling dehydrated and poor appetite. Past Med Surg Social Fam HX - Past Medical History Medical history: diabetes, hypertension Psychiatric history: no psych history - Past Surgical History Additional surgical history: triple bypass - Social History Smoking Status: Never smoker Smokeless Tobacco Status: No Alcohol use: none Drug use: none - Family History Father History Unknown: Yes Medications and Allergies Amiodarone [Cordarone] 200 mg PO DAILY 07/11/18 [History] Amlodipine Besylate 10 mg PO DAILY 07/11/18 [History] Apixaban [Eliquis] 5 mg PO BID 07/11/18 [History] Aspirin Enteric Coated [Aspirin EC] 162 mg PO DAILY 07/11/18 [History] Atorvastatin [Lipitor] 40 mg PO HS 07/11/18 [History] Cephalexin [Keflex] 500 mg PO BID 07/11/18 [History] Furosemide [Lasix] 20 mg PO DAILY 07/11/18 [History] Guaifenesin [Mucinex] 600 mg PO DAILY PRN 07/11/18 [History] Insulin ASPART [NovoLOG] 10 units SQ TIDWM 07/11/18 [History] Insulin DETEMIR [Levemir] 26 units SQ HS 07/11/18 [History] Lansoprazole [Prevacid] 30 mg PO DAILY 07/11/18 [History] Oxybutynin Chloride [Ditropan Xl] 10 mg PO DAILY 07/11/18 [History] Sitagliptin Phosphate [Januvia] 50 mg PO HS 07/11/18 [History] Sulfamethoxazole/Trimeth DS [Bactrim DS] 1 tab PO BID 07/11/18 [History] 3 Allergy/AdvReac Type Severity Reaction Status Date / Time Procaine [From Novocain] Allergy See Verified 07/11/18 11:56 Comments Review of Systems All Systems: reviewed and no additional remarkable complaints except as stated Constitutional: as per HPI Nose, mouth and throat: as per HPI Cardiovascular: as per HPI Respiratory: as per HPI Gastrointestinal: as per HPI Musculoskeletal: as per HPI Integumentary: as per HPI Neurological: as per HPI Psychiatric: as per HPI Exam - Vital Signs Vital signs: Initial Vital Signs Temp Pulse Resp BP Pulse Ox 98.0 F 52 15 148/66 99 07/11/18 10:16 07/11/18 10:16 07/11/18 10:16 07/11/18 10:16 07/11/18 10:16 Vital Signs - Last 8 Hours Temp Pulse Resp BP Pulse Ox 07/11/18 15:34 97.4 F L 55 16 115/62 93 07/11/18 14:30 55 16 149/44 97 07/11/18 14:11 20 138/64 Intake and Output 07/10/18 07/11/18 07/11/18 23:59 07:59 15:59 Other: Weight 77.7 kg Blood Glucose* 42 Patient Weight 07/11/18 23:59 Weight 77.7 kg - General Appearance Exam: General appearance: alert, in no apparent distress - Head Head exam: atraumatic, normocephalic, normal inspection - Eye Eye exam: Present: normal appearance, EOMI. Absent: nystagmus - ENT ENT exam: mucous membranes moist - Neck Neck exam: Present: normal inspection, full ROM, trachea midline - Chest Chest inspection: Present: normal inspection, symmetric chest wall rise - Respiratory Respiratory exam: Present: normal lung sounds bilaterally. Absent: respiratory distress, wheezes, stridor, accessory muscle use, prolonged expiratory phase - Cardiovascular Cardiovascular exam: Present: normal rhythm, bradycardia, normal heart sounds. systolic murmur appreciated. - Abdominal Exam Abdominal exam: Present: soft, Non-Tender, normal bowel sounds, no guarding - Extremities Exam Extremities exam: Present: full ROM, tenderness (Right lower extremity), pedal edema (+2 pretibial edema noted bilaterally) - Expanded Lower Extremity Exam Lower leg exam: Present: normal inspection, erythema (Mild erythema noted distal right leg) - Back Exam Back exam: Present: normal inspection, full ROM. Absent: tenderness - Neurological Exam Neurological exam: Present: alert, oriented X3 - Psychiatric Psychiatric exam: Present: normal affect, normal mood - Skin Skin exam: Present: warm, dry, intact, normal color Results - Lab Results 07/11/18 10:52 07/11/18 10:52 Most recent lab results Calcium 9.1 mg/dL (8.6-10.3) 07/11/18 10:52 Phosphorus 4.2 mg/dL (2.7-4.5) 07/11/18 10:52 Magnesium 2.8 mg/dL (1.6-2.6) H 07/11/18 10:52 Consult Discharge Plan - Plan Referrals: Benny Pabon DO [Primary Care Provider] -
--- NOTE | 2018-07-11 16:22 | Internal Med History&Physical ---
Date of Encounter: 07/12/18 Time of Encounter: 15:30 Internal Medicine - H&P: HPI Chief complaint: Abnormal labs Admitted From: Home History of present illness: Ms. Powell is a 78 year old female hypertension, CAD, CHF and diabetes urinary incontinence who had recently had a cardiac bypass done in February was being followed outpatient was sent to ER due to abnormal labs. Lab drawn on 07/09 showed worsening kidney function with a creatinine of 3.08 and Bun of 60. She had difficulty passing urine since bypass according to daughter. Also complains of being weak. All history given by daughter was at bedside. Does not have any papers from previous admission. Limited information obtained from some old records. Patient or daughter could not identify exactly why patient is on blood thinner eventhough as per daughter recent ultrasound for DVT was negative. She did have some nausea and non-bloody vomiting. Denies any chest pain or shortness of breath. Uses many pupils to sleep. About 6 pound weight gain over the past 1-2 weeks. Was being treated for cellulites on the right lower leg perez area. Denies any cough or bowel problems. Denies any palpitation or headache. Of note that she has been on Bactrim and keflex for cellulitis on Rt leg. Past Med Surg Social Fam HX - Past Medical History Medical history: diabetes, hypertension Psychiatric history: no psych history - Past Surgical History Surgical History: coronary bypass (CABG) Additional surgical history: triple bypass - Social History Smoking Status: Never smoker Smokeless Tobacco Status: No Alcohol use: none Drug use: none - Family History Father History Unknown: Yes - Additional Family History Additional family history: Reviewed and non-contributory Internal Medicine - H&P: Meds Amiodarone [Cordarone] 200 mg PO DAILY 07/11/18 [History] Apixaban [Eliquis] 5 mg PO BID 07/11/18 [History] Aspirin Enteric Coated [Aspirin EC] 162 mg PO DAILY 07/11/18 [History] Atorvastatin [Lipitor] 40 mg PO HS 07/11/18 [History] Cephalexin [Keflex] 500 mg PO BID 07/11/18 [History] Furosemide [Lasix] 20 mg PO DAILY 07/11/18 [History] Guaifenesin [Mucinex] 600 mg PO DAILY PRN 07/11/18 [History] Insulin ASPART [NovoLOG] 10 units SQ TIDWM 07/11/18 [History] Insulin DETEMIR [Levemir] 26 units SQ HS 07/11/18 [History] Lansoprazole [Prevacid] 30 mg PO DAILY 07/11/18 [History] Oxybutynin Chloride [Ditropan Xl] 10 mg PO DAILY 07/11/18 [History] RX: Amlodipine Besylate 10 mg PO DAILY 07/11/18 [History] Sitagliptin Phosphate [Januvia] 50 mg PO HS 07/11/18 [History] Sulfamethoxazole/Trimeth DS [Bactrim DS] 1 tab PO BID 07/11/18 [History] 3 Allergy/AdvReac Type Severity Reaction Status Date / Time Procaine [From Novocain] Allergy See Verified 07/11/18 11:56 Comments All Systems PM: A 10-system review of systems was performed and is negative for pertinent findings except as documented above in the HPI. - Constitutional Vitals: Temp Pulse Resp BP Pulse Ox 97.4 F L 55 16 115/62 93 07/11/18 15:34 07/11/18 15:34 07/11/18 15:34 07/11/18 15:34 07/11/18 15:34 General appearance: Present: A&O X 2 Exam: Constitutional: In no distress, Lying comfortably HEENT: PEARLA, No JVD, No lymphadenopathy CVS: S1, S2 normal, No MRG, bradycardic, regular rhythm RS: Air entry equal, CTA ABdomen: Soft, Non-tender, mildly distended Extremities: faint rash noted on Rt leg anterior just above ankle, 1+ pedal edema Skin : No ulcer or other rash noted. Neuro: Cranial nerve gross normal, Motor and sensory exam grossly unremarkable, AOx3 Psych: flat affect, poor insight. Internal Med - H&P Results - Labs CBC & Chem 7: 07/12/18 04:31 07/12/18 04:31 - EKG Data -: EKG Interpreted by Myself EKG shows normal: sinus rhythm Rate: bradycardia - EKG Data Prior EKG available for review: yes - Assessment and plan (1) Acute kidney injury Current Visit: Yes Status: Acute Assessment and plan: - Worsening kidney function possibly post renal vs medication related. - Will insert mendoza. She has history of urinary incontinence and decrease urine frequency recently - Renal following - May need dialysis with Hyperkalemia worsens. (2) Hyperkalemia Current Visit: Yes Status: Acute Assessment and plan: Likely from renal failure - EKG with sinus bradycardia possibly related. Will closely monitor patient on tele. (3) HTN (hypertension) Current Visit: No Status: Chronic Assessment and plan: c/w home amlodipine Qualifiers: Hypertension type: essential hypertension Qualified Code(s): I10 - Essential (primary) hypertension (4) CAD (coronary artery disease) Current Visit: Yes Status: Acute Assessment and plan: - Recently CABG. Patient on Amiodarone with sinus bradycardia. Will obtain cardio consultation to adjust medication if needed. - unclear exactly why patient on apixaban. Will continue for now. Will obtain further records. - May need to hold if kidney biopsy is needed. Qualifiers: Qualified Code(s): I25.10 - Atherosclerotic heart disease of [place] coronary artery without angina pectoris - Time Spent With Patient Total time spent is greater than 50% in coordination of care (as documented) at patient's floor/unit and/or counseling patient: Greater than 35 minutes - VTE Reasons for not Prescribing Prophylaxis: Not indicated-Anticoagulated or INR therapeutic
[2018-07-11 16:52] LABS: Hemoglobin 9.2 g/dL (11.5-15.4); Mean Corpuscular HGB Conc 31.7 g/dL (31.6-35.5); Mean Corpuscular Hemoglobin 26.1 pg (28.0-33.3); Mean Corpuscular Volume 82.2 fL (83.0-100.0); Mean Platelet Volume 10.9 fL (9.4-12.4); Platelet Count 213 K/mcL (140-400); Red Blood Count 3.53 M/mcL (3.82-4.97); Red Cell Distribution Width 15.7 % (11.5-14.5)
[2018-07-11 16:59] LABS: INR 2.7; Prothrombin Time 30.8 Seconds (9.4-12.1)
[2018-07-11 17:13] LABS: Albumin 3.7 g/dL (3.5-5.7); Albumin/Globulin Ratio 1.3 (1.1-2.2); Bilirubin,Direct 0.1 mg/dL (0.0-0.2); Bilirubin,Indirect 0.2 mg/dL (0.0-1.2); Bilirubin,Total 0.3 mg/dL (0.3-1.0); Globulin 2.9 g/dL (2.4-3.5); Total Protein 6.6 g/dL (6.4-8.9)
[2018-07-11 17:15] LABS: Heparin anti-factor XA UFH > 2.00 IU/mL (0.30-0.70)
[2018-07-11 17:26] LABS: Thyroid Stimulating Hormone 6.537 mcIU/mL (0.340-5.600)
[2018-07-11] MEDS: 0.9 % Sodium Chloride 1,000 ML IVC SCH (18:10)
[2018-07-11] MEDS ORDERED: Apixaban 5 MG TABLET PO SCH (21:00)
[2018-07-11] MEDS ORDERED: Insulin DETEMIR 100 UNIT/ML X5UNITS SQ SCH (21:00)
[2018-07-12 05:07] LABS: Basophils % 0.3 %; Eosinophils # 0.1 K/mcL (0.0-0.6); Eosinophils % 1.9 %; Hematocrit 26.2 % (35.3-44.9); Hemoglobin 8.3 g/dL (11.5-15.4); Immature Granulocytes % 0.3 % (0-4); Lymphocytes # 1.6 K/mcL (0.6-4.6); Mean Corpuscular HGB Conc 31.7 g/dL (31.6-35.5); Mean Corpuscular Hemoglobin 25.4 pg (28.0-33.3); Mean Corpuscular Volume 80.1 fL (83.0-100.0); Mean Platelet Volume 11.4 fL (9.4-12.4); Monocytes # 0.7 K/mcL (0.0-1.3); Monocytes % 10.6 %; Neutrophils # 4.2 K/mcL (1.6-8.9); Platelet Count 218 K/mcL (140-400); Red Blood Count 3.27 M/mcL (3.82-4.97); Red Cell Distribution Width 15.9 % (11.5-14.5); Segmented Neutrophils % 62.9 %
[2018-07-12 05:28] LABS: Calcium 8.6 mg/dL (8.6-10.3); Potassium 4.7 mEq/L (3.5-5.1)
[2018-07-12] MEDS: 0.9 % Sodium Chloride 1,000 ML IVC SCH (08:21)
[2018-07-12] MEDS: Aspirin Enteric Coated 81 MG Tablet PO SCH (08:26)
[2018-07-12] MEDS: amLODIPine 5 MG TABLET PO SCH (08:26)
--- NOTE | 2018-07-12 09:31 | Electrocardiograph Report ---
[place] [id number] Test Date: 2018-07-11 Pat Name: Marcelle Powell Department: EXAM9 Room: [facility] Gender: F Fitness Assistant: : 1940 Requested By: Zachariah Zimmerman Order Number: [id number] Reading MD: Wisam Moss Measurements Intervals [place] Rate: 47 P: -41 MD: 190 QRS: 39 QRSD: 151 T: -1 QT: 497 QTc: 440 Interpretive Statements Sinus bradycardia Right bundle branch block Electronically Signed On 07-12-2018 9:30:10 EDT by Wisam Moss
[2018-07-12] MEDS ORDERED: Apixaban 5 MG TABLET PO SCH (10:45)
[2018-07-12] MEDS: Ondansetron Oral Soln 2 MG/2.5 ML ORAL.SYG PO ONE ×2 (11:00→11:05)
--- NOTE | 2018-07-12 11:41 | Nephrology Progress Note ---
Date of Encounter: 07/12/18 Time of Encounter: 11:41 - Assessment and Plan (1) Acute kidney injury Current Visit: Yes Status: Acute Patient with acute kidney injury of unclear etiology. Suspect acute tubular necrosis versus obstruction given the report of 1 liter PVR. Renal function is not worsening, but also not really improving post mendoza placement. Will give another fluid challenge and await serologic work-up. Of note the patient most recent eGFR was April and 16 June this year indicating that this is likely acute on chronic kidney disease. Her urinalysis is benign. Adjust medications for renal function. Avoid nephrotoxins. (2) Urinary retention Current Visit: Yes Status: Acute Report the patient had 1 L postvoid residual. Patient also has bladder wall thickening of unclear etiology. Urology has been consulted. (3) Elevated troponin Current Visit: Yes Status: Acute Per cardiology. Patient s/p CABG. (4) HTN (hypertension) Current Visit: No Status: Chronic Blood pressure is controlled. Qualifiers: Hypertension type: essential hypertension Qualified Code(s): I10 - Essential (primary) hypertension Subjective Principal diagnosis: NORBERT Interval history: Patient seen and evaluated. Her daughter is at bedside. She states she feels better today. He still has nausea, but no vomiting. Her biggest complaint is regarding constipation. Daughter is concerned about her not being active enough. Objective - Vital Signs Vital signs: Vital Signs Temp Pulse Resp BP Pulse Ox 07/12/18 08:06 98.1 F 53 18 133/68 92 07/12/18 05:33 97.1 F L 53 17 132/63 95 07/12/18 03:53 97.5 F L 48 20 139/53 96 07/12/18 00:02 97.8 F 48 17 136/66 92 07/11/18 21:49 97.5 F L 48 16 147/67 97 Intake and Output 07/11/18 07/12/18 07/12/18 23:59 07:59 15:59 Intake Total 500 / 500 Output Total 1200 / 1200 Balance -1200 / -1200 500 / 500 Intake: IV Fluids 500 / 500 0.9 % Sodium Chloride 1,000 ML 500 / 500 @ 75 mls/hr IVC .[id number] MARIA LUISA Rx #:[id number] Oral 0 / 0 Output: Catheter 1200 / 1200 Other: Meal Breakfast Percent of Meal Consumed 0% Weight 77.5 kg Blood Glucose* 206 106 85 Patient Weight 07/12/18 23:59 Weight 77.5 kg - General Appearance General appearance: Present: well-developed, well-nourished EENT: Present: ATNC Neck: Present: supple Respiratory: Present: clear Cardiology: Present: no edema, regular rate Gastrointestinal: Present: obese Integumentary: Present: warm and dry Neurologic: Present: alert and oriented x3 Musculoskeletal: Present: no cyanosis Psychiatric: Present: mood/affect appropriate - Lab 07/12/18 04:31 07/12/18 04:31 Most recent lab results Calcium 8.6 mg/dL (8.6-10.3) 07/12/18 04:31 Phosphorus 4.2 mg/dL (2.7-4.5) 07/11/18 10:52 Magnesium 2.8 mg/dL (1.6-2.6) H 07/11/18 10:52 Urine Creatinine 62 mg/dL 07/11/18 16:20 Urine Sodium 60.0 mEq/L 07/11/18 16:20 - VTE Reasons for not Prescribing Prophylaxis: Not indicated-Anticoagulated or INR therapeutic Consult Discharge Plan - Plan Referrals: Benny Pabon DO [Primary Care Provider] -
[2018-07-12] MEDS: Sodium Bicarbonate 75 MEQ in 0.45 % Sodium Chloride 1,000 ML IVC SCH (15:32)
--- NOTE | 2018-07-12 17:15 | Internal Med Progress Note ---
Hospitalist Progress Note - Encounter Date of Encounter: 07/12/18 Time of Encounter: 09:45 - Subjective Interval History: Patient seen and examined this morning. Complained of nausea. Denies fevers chills or diarrhea. Some constipation - Exam Vitals: Temp Pulse Resp BP Pulse Ox 98.1 F 47 20 144/45 89 07/12/18 16:42 07/12/18 16:42 07/12/18 16:42 07/12/18 16:42 07/12/18 16:42 Exam: Constitutional: In no distress, Lying comfortably, More alert HEENT: PEARLA, No JVD, No lymphadenopathy CVS: S1, S2 normal, No MRG, bradycardic, regular rhythm RS: Air entry equal, CTA ABdomen: Soft, Non-tender, mildly distended Extremities: faint rash noted on Rt leg anterior just above ankle, 1+ pedal edema Skin : No ulcer or other rash noted. Neuro: Cranial nerve gross normal, Motor and sensory exam grossly unremarkable, AOx3 Psych: More alert, poor insight. - Assessment and Plan (1) Acute kidney injury Current Visit: Yes Status: Acute (2) Hyperkalemia Current Visit: Yes Status: Acute (3) HTN (hypertension) Current Visit: No Status: Chronic (4) CAD (coronary artery disease) Current Visit: Yes Status: Acute (5) Elevated troponin Current Visit: Yes Status: Acute (6) History of atrial fibrillation Current Visit: Yes Status: Acute (7) Urinary retention Current Visit: Yes Status: Acute - Summary of Assessment and Plan Summary of Assessment and Plan: Acute kidney injury - Worsening kidney function possibly obstructive vs ATN. Likely acute on CKD given decreased GFR in April - c/w insert mendoza. Renal following. - Renal function not improving as expected with mendoza. To give Fluid challenge and await serologic workup for SELENA, Complement, CK, ANCA, Protein electrophoresis, RF. - Strict. I/O - Retroperitoneal US-No evidence of hydronephrosis. Rt kidney is slightly smaller than the left. Diffuse urinary bladder wall thickening. - Avoid Nephrotoxins. Hyperkalemia - Likely from renal failure - c/ patient on tele. coronary artery disease - Recently CABG. Patient on Amiodarone with sinus bradycardia. Will obtain cardio consultation to adjust medication if needed. - unclear exactly why patient on apixaban. Will continue for now. Will obtain further records. - May need to hold if kidney biopsy is needed. Bradycardia - Possibly related to ARF. - Unlikely from amiodarone per cardio. But is held due to abnormal LT and TSH. - She has upcoming appointment to establish with [facility]. Paroxysmal AFib - Post opt after bypass. Patient placed on amio and Eliquis. - Amiodarone is being stopped given elevated LFT and TSH. - Eliquis held given ARF. Will resume when renal function normalizes. - Continue aspirin for now. HTN - c/w amlodipine Elevated troponin - Likely related to ARF. DVT ppx - Heparin Sc. - Time Spent with Patient Total time spent is greater than 50% in coordination of care (as documented) at patient's floor/unit and/or counseling patient: Internal Medicine: Result - Labs CBC & Chem 7: 07/12/18 04:31 07/12/18 04:31 Labs: Short CBC 07/12/18 Range/Units 04:31 WBC 6.7 (4.3-11.1) K/mcL Hgb 8.3 L (11.5-15.4) g/dL Hct 26.2 L (35.3-44.9) % Plt Count 218 (140-400) K/mcL Neutrophils # 4.2 (1.6-8.9) K/mcL BMP 07/11/18 07/11/18 07/12/18 19:15 21:05 04:31 Sodium 126 L 128 L 131 L Potassium 4.7 Chloride 104 Carbon Dioxide 17 L BUN 61 H Creatinine 3.30 H Glucose 77 Calcium 8.6 - ABG Interpretation ABG results: PT/INR, D-dimer PT 30.8 Seconds (9.4-12.1) H 07/11/18 16:33 - Impressions Impressions Retroperitoneum Ultrasound 07/11/18 22:00 IMPRESSION: No evidence of hydronephrosis. Right kidney is slightly smaller than the left, nonspecific though may reflect chronic renal disease. Diffuse urinary bladder wall thickening may be due to underdistention or cystitis. Consider correlation with urinalysis. D/ / 07/11/2018 23:20:18 Ramirez Raymond / teresita Interpreting Provider: Ramirez Raymond - VTE Reasons for not Prescribing Prophylaxis: Not indicated-Anticoagulated or INR therapeutic Consult Discharge Plan - Plan Referrals: Benny Pabon DO [Primary Care Provider] - (3) HTN (hypertension) Qualifiers: Hypertension type: essential hypertension Qualified Code(s): I10 - Essential (primary) hypertension (4) CAD (coronary artery disease) Qualifiers: Qualified Code(s): I25.10 - Atherosclerotic heart disease of [place] coronary artery without angina pectoris
[2018-07-12] MEDS ORDERED: Sennosides 8.6 MG TABLET PO PRN (17:43)
[2018-07-12] MEDS: *HR* Heparin 5,000 UNIT/ML VIAL SQ SCH (20:36)
[2018-07-12] MEDS: Insulin DETEMIR 100 UNIT/ML X5UNITS SQ SCH (20:36)
[2018-07-13] MEDS: Acetaminophen 325 MG TABLET PO PRN ×3 (01:24→14:15)
[2018-07-13] MEDS: Sodium Bicarbonate 75 MEQ in 0.45 % Sodium Chloride 1,000 ML IVC SCH (04:50)
[2018-07-13] MEDS: *HR* Heparin 5,000 UNIT/ML VIAL SQ SCH ×2 (04:50→14:16)
[2018-07-13 05:01] LABS: Rheumatoid Factor < 10 IU/mL (Less than 14)
[2018-07-13 07:39] LABS: Calcium 8.3 mg/dL (8.6-10.3); Potassium 4.9 mEq/L (3.5-5.1)
[2018-07-13] MEDS: amLODIPine 5 MG TABLET PO SCH (08:08)
[2018-07-13] MEDS: Aspirin Enteric Coated 81 MG Tablet PO SCH (08:08)
--- NOTE | 2018-07-13 08:15 | Urology - Consult Note ---
Date of Encounter: 07/13/18 Time of Encounter: 08:13 - Assessment and Plan (1) Acute kidney injury Current Visit: Yes Status: Acute Assessment and plan: 70-year-old woman with a history of acute kidney injury. She has an indwelling catheter. We will continue the catheter while she is in the hospital. Appreciate nephrology recommendations. Urology will follow along. No indication for ureteral stent placement at this time. (2) Urinary retention Current Visit: Yes Status: Acute Assessment and plan: 78-year-old woman with a history of urinary retention. She has a long-standing history of diabetes. She likely has a neurogenic bladder which is acontractile. She seems to be managing her bladder with depends and having overflow incontinence. She now has an indwelling catheter with clear urine. She will likely be catheter dependent for the long-term. I recommend continuing the catheter while she is in the hospital. We can discuss possible voiding trial in our office. However, I did discuss the very possibility of her needing a long-term indwelling catheter, performing intermittent catheterization, or placement of a suprapubic tube. I appreciate the consultation. Please call if questions. Urology CN:HPI Consult date: 07/13/18 Reason for consult Urology: Other (urinary retention) History of present illness: 78-year-old woman presents with concern for acute kidney injury. She recently underwent a cardiac bypass surgery at [facility]. She had a catheter at that time and it was eventually removed. She reports that she just urinates into depends. Recent blood work showed worsening renal function. She was brought to the emergency department. Her creatinine meliton to 3.42 on 2017. Her baseline creatinine was around 1.45-1.67 on recent tests. She denies any fevers or chills. She denies any dysuria. She denies any flank pain. I reviewed her renal and bladder ultrasound. The catheter was in place, but there is no evidence of hydronephrosis. However, an ultrasound from 03/18/2015 showed mild bilateral hydronephrosis with a distended bladder. Past Med Surg Social Fam HX - Past Medical History Medical history: diabetes, hypertension Psychiatric history: no psych history - Past Surgical History Surgical History: coronary bypass (CABG) Additional surgical history: triple bypass - Social History Smoking Status: Never smoker Smokeless Tobacco Status: No Alcohol use: none Drug use: none - Family History Father History Unknown: Yes Mother Hx Family Cardiac Disorders: Yes (Cardiac disease) Medications and Allergies Amiodarone [Cordarone] 200 mg PO DAILY 07/11/18 [History] Amlodipine Besylate 10 mg PO DAILY 07/11/18 [History] Apixaban [Eliquis] 5 mg PO BID 07/11/18 [History] Aspirin Enteric Coated [Aspirin EC] 162 mg PO DAILY 07/11/18 [History] Atorvastatin [Lipitor] 40 mg PO HS 07/11/18 [History] Cephalexin [Keflex] 500 mg PO BID 07/11/18 [History] Furosemide [Lasix] 20 mg PO DAILY 07/11/18 [History] Guaifenesin [Mucinex] 1,200 mg PO BID PRN 07/11/18 [History] Insulin ASPART [NovoLOG] 10 units SQ TIDWM 07/11/18 [History] Insulin DETEMIR [Levemir] 26 units SQ HS 07/11/18 [History] Lansoprazole [Prevacid] 30 mg PO DAILY 07/11/18 [History] Oxybutynin Chloride [Ditropan Xl] 10 mg PO DAILY 07/11/18 [History] Sitagliptin Phosphate [Januvia] 50 mg PO HS 07/11/18 [History] Sulfamethoxazole/Trimeth DS [Bactrim DS] 1 tab PO BID 07/11/18 [History] 3 Allergy/AdvReac Type Severity Reaction Status Date / Time Procaine [From Novocain] Allergy See Verified 07/11/18 11:56 Comments Review of Systems - Constitutional no chills, no fever(s) - EENT Nose, mouth and throat: no dizziness - Cardiovascular no chest pain - Respiratory no dyspnea - Gastrointestinal no nausea, no vomiting - Genitourinary Genitourinary: difficulty voiding, no flank pain, no hematuria - Musculoskeletal no back pain - Integumentary no erythema, no rash - Neurological no weakness - Psychiatric no suicidal ideation - Hematologic/Lymphatic no easy bleeding - Allergic/Immunologic no wheezing Exam Initial Vital Signs Temp Pulse Resp BP Pulse Ox 98.0 F 52 15 148/66 99 07/11/18 10:16 07/11/18 10:16 07/11/18 10:16 07/11/18 10:16 07/11/18 10:16 - General physical appearance Present: well developed, well nourished, no distress - Eyes Absent: icteric - ENT Present: normal nares - Neck Present: trachea midline - Respiratory Present: normal respiratory effort - Cardiovascular Cardiovascular exam IM: RRR - Abdomen Abdomen: Present: soft - Genitourinary Present: other (Catheter in place with clear urine) - Integumentary Present: no rash - Neurologic Present: normal coordination - Musculoskeletal Present: other (grossly normal.) Urology Results - Labs 07/12/18 04:31 07/13/18 04:05 Abnormal lab results RBC 3.27 M/mcL (3.82-4.97) L 07/12/18 04:31 Hgb 8.3 g/dL (11.5-15.4) L 07/12/18 04:31 Hct 26.2 % (35.3-44.9) L 07/12/18 04:31 MCV 80.1 fL (83.0-100.0) L 07/12/18 04:31 MCH 25.4 pg (28.0-33.3) L 07/12/18 04:31 RDW 15.9 % (11.5-14.5) H 07/12/18 04:31 PT 30.8 Seconds (9.4-12.1) H 07/11/18 16:33 Heparin Anti-Xa, Unfract > 2.00 IU/mL (0.30-0.70) H* 07/11/18 16:33 Sodium 128 mEq/L (136-145) L 07/13/18 04:05 Chloride 109 mEq/L (98-107) H 07/13/18 04:05 Carbon Dioxide 17 mEq/L (23-29) L 07/13/18 04:05 BUN 59 mg/dL (8-23) H 07/13/18 04:05 Creatinine 3.11 mg/dL (0.60-1.20) H 07/13/18 04:05 Est GFR ( Amer) 18 (> 60) L 07/13/18 04:05 Est GFR (Non-Af Amer) 14 (> 60) L 07/13/18 04:05 POC Glucose 106 mg/dL (70-99) H 07/12/18 01:03 Serum Osmolality 301 mOsm/kg (280-300) H 07/11/18 16:33 Calcium 8.3 mg/dL (8.6-10.3) L 07/13/18 04:05 Magnesium 2.8 mg/dL (1.6-2.6) H 07/11/18 10:52 AST 49 Units/L (13-39) H 07/11/18 16:33 ALT 93 Units/L (7-52) H 07/11/18 16:33 Alkaline Phosphatase 113 Units/L (34-104) H 07/11/18 16:33 Troponin I 0.04 ng/mL (< 0.04) H* 07/11/18 10:52 B-Natriuretic Peptide 636 pg/mL (Less than 100) H 07/11/18 11:16 TSH 6.537 mcIU/mL (0.340-5.600) H 07/11/18 16:33 Diabetes panel 07/13/18 Range/Units 04:05 Sodium 128 L (136-145) mEq/L Potassium 4.9 (3.5-5.1) mEq/L Chloride 109 H (98-107) mEq/L Carbon Dioxide 17 L (23-29) mEq/L BUN 59 H (8-23) mg/dL Creatinine 3.11 H (0.60-1.20) mg/dL Glucose 89 (70-105) mg/dL Calcium 8.3 L (8.6-10.3) mg/dL Calcium panel 07/13/18 Range/Units 04:05 Calcium 8.3 L (8.6-10.3) mg/dL Pituitary panel 07/13/18 Range/Units 04:05 Sodium 128 L (136-145) mEq/L Potassium 4.9 (3.5-5.1) mEq/L Chloride 109 H (98-107) mEq/L Carbon Dioxide 17 L (23-29) mEq/L BUN 59 H (8-23) mg/dL Creatinine 3.11 H (0.60-1.20) mg/dL Glucose 89 (70-105) mg/dL Calcium 8.3 L (8.6-10.3) mg/dL Adrenal panel 07/13/18 Range/Units 04:05 Sodium 128 L (136-145) mEq/L Potassium 4.9 (3.5-5.1) mEq/L Chloride 109 H (98-107) mEq/L Carbon Dioxide 17 L (23-29) mEq/L BUN 59 H (8-23) mg/dL Creatinine 3.11 H (0.60-1.20) mg/dL Glucose 89 (70-105) mg/dL Calcium 8.3 L (8.6-10.3) mg/dL All other labs normal. - Imaging US - abdomen: report reviewed, image reviewed US - pelvic: report reviewed, image reviewed Consult Discharge Plan - Plan Referrals: Benny Pabon DO [Primary Care Provider] -
--- NOTE | 2018-07-13 13:08 | Internal Med Progress Note ---
Hospitalist Progress Note - Encounter Date of Encounter: 07/13/18 Time of Encounter: 11:45 - Subjective Interval History: Patient seen and examined this morning. Complained of nausea. Denies fevers chills or diarrhea. Complains of some heart burn. Had BM yesterday. - Exam Vitals: Temp Pulse Resp BP Pulse Ox 98.0 F 52 18 156/51 91 07/13/18 11:09 07/13/18 11:09 07/13/18 11:16 07/13/18 11:09 07/13/18 11:16 Exam: Constitutional: In no distress, Lying comfortably, More alert HEENT: PEARLA, No JVD, No lymphadenopathy CVS: S1, S2 normal, No MRG, bradycardic, regular rhythm RS: Air entry equal, CTA ABdomen: Soft, Non-tender, mildly distended Extremities: faint rash noted on Rt leg anterior just above ankle, 1+ pedal edema Skin : No ulcer or other rash noted. Neuro: Cranial nerve gross normal, Motor and sensory exam grossly unremarkable, AOx3 Psych: alert, poor insight. - Assessment and Plan (1) Acute kidney injury Current Visit: Yes Status: Acute (2) Hyperkalemia Current Visit: Yes Status: Acute (3) HTN (hypertension) Current Visit: No Status: Chronic (4) CAD (coronary artery disease) Current Visit: Yes Status: Acute (5) Elevated troponin Current Visit: Yes Status: Acute (6) History of atrial fibrillation Current Visit: Yes Status: Acute (7) Urinary retention Current Visit: Yes Status: Acute - Summary of Assessment and Plan Summary of Assessment and Plan: Acute kidney injury - Worsening kidney function possibly obstructive vs ATN. Likely acute on CKD given decreased GFR in April - c/w insert mendoza. Renal following. - Renal function not improving as expected with mendoza. To give Fluid challenge and await serologic workup for SELENA, Complement, CK, ANCA, Protein electrophoresis, RF. - Strict. I/O - Retroperitoneal US-No evidence of hydronephrosis. Rt kidney is slightly smaller than the left. Diffuse urinary bladder wall thickening. - Avoid Nephrotoxins. Shortness of breath - Will obtain EKG, CXR and ABG. - Saturating 94 on 2 L Hyperkalemia - Likely from renal failure - c/ patient on tele. coronary artery disease - Recently CABG. Patient on Amiodarone with sinus bradycardia. Will obtain cardio consultation to adjust medication if needed. - On apixaban at home for Afib. Will continue for now. Bradycardia - Still angelo - Possibly related to ARF. - Unlikely from amiodarone per cardio. But is held due to abnormal LT and TSH. - She has upcoming appointment to establish with [facility]. - Cardiology recommendation appreciated. Paroxysmal AFib - Post opt after bypass. Patient placed on amio and Eliquis. - Amiodarone is being stopped given elevated LFT and TSH. - Eliquis held given ARF. Will resume when renal function normalizes. - Continue aspirin for now. HTN - c/w amlodipine Elevated troponin - Likely related to ARF. DVT ppx - Heparin Sc. - Time Spent with Patient Total time spent is greater than 50% in coordination of care (as documented) at patient's floor/unit and/or counseling patient: Internal Medicine: Result - Labs CBC & Chem 7: 07/12/18 04:31 07/13/18 04:05 Labs: BMP 07/13/18 04:05 Sodium 128 L Potassium 4.9 Chloride 109 H Carbon Dioxide 17 L BUN 59 H Creatinine 3.11 H Glucose 89 Calcium 8.3 L - ABG Interpretation ABG results: PT/INR, D-dimer PT 30.8 Seconds (9.4-12.1) H 07/11/18 16:33 - Impressions Impressions Chest X-Ray 07/13/18 11:49 IMPRESSION: Findings suggesting developing acute congestive heart failure with probable trace effusions and basilar atelectasis. D/ / 07/13/2018 13:00:03 Benjamin Celaya MD / dean Interpreting Provider: Benjamin Celaya MD - VTE Reasons for not Prescribing Prophylaxis: Not indicated-Anticoagulated or INR therapeutic Consult Discharge Plan - Plan Referrals: Benny Pabon DO [Primary Care Provider] - (3) HTN (hypertension) Qualifiers: Hypertension type: essential hypertension Qualified Code(s): I10 - Essential (primary) hypertension (4) CAD (coronary artery disease) Qualifiers: Qualified Code(s): I25.10 - Atherosclerotic heart disease of [place] coronary artery without angina pectoris
[2018-07-13 14:10] LABS: ABG Base Excess -2 mEq/L (-2 to 3); ABG HCO3 21 mEq/L (21-27); ABG Oxygen Saturation 93 % (95-98); ABG PCO2 28 mmHg (35-45); ABG PH 7.48 pH Units (7.32-7.45); ABG PO2 59 mmHg (85-104); ABG TCO2 22 mEq/L (20-26)
[2018-07-13] MEDS ORDERED: *HR* Heparin 5,000 UNIT/ML VIAL IVP PRN ×2 (16:20)
[2018-07-13] MEDS ORDERED: *HR* Heparin 5,000 UNIT/ML VIAL IVP ONE (16:20)
[2018-07-13] MEDS ORDERED: Heparin 25,000 UNIT/500 ML D5W 25,000 UNIT/500 ML BAG IVC SCH (16:30)
--- NOTE | 2018-07-13 16:37 | Event Note ---
Date of Encounter: 07/13/18 Time of Encounter: 16:34 - Cardiology Event Note Paged by Hospitalist it communications manager, Dr. Garcia for troponin elevation, 0.19. Per report, no acute ECG changes, patient with nonspecific complaints. Discussed anticoagulation - expressed concern regarding drop in blood count since May as well as since admission (10.3 now 8.3) and INR 2.7 two days ago. Recommend evaluation for drop in blood count, repeat INR, trend troponin and holding off on heparin gtt.
--- NOTE | 2018-07-13 16:46 | Event Note ---
Date of Encounter: 07/13/18 Time of Encounter: 16:46 Patient complained of some shortness of breath, cough and some feeling of apprehension. ABG, chest x-ray, EKG was done. EKG was at baseline with sinus bradycardia, chest x-ray showed mild congestion and ABG showed hypoxia. Patient is not on any anticoagulation with and has history of A. fib. D-dimer was obtained which was elevated. Troponin was obtained which was 0. 19. [facility] was called. Given the decrease in hemoglobin in past 2 days risk of starting anticoagulation was more than the benefit. Also given her kidney function and troponin is expected to be mildly elevated. Also patient's INR 2 days ago was 2.7. We will obtain stool occult blood to rule out any GI bleeding. Her symptoms could be from anemia. Of note patient has not had any dewayne blood in stool or any bloody vomitus. Abdomen soft and nontender. We will obtain LE Doppler. Patient felt significantly better after starting 2 L of oxygen. Patient was hemodynamically stable throughout.
[2018-07-13 16:54] LABS: Hematocrit 25.6 % (35.3-44.9); Hemoglobin 8.3 g/dL (11.5-15.4); Mean Corpuscular HGB Conc 32.4 g/dL (31.6-35.5); Mean Corpuscular Hemoglobin 26.8 pg (28.0-33.3); Mean Corpuscular Volume 82.6 fL (83.0-100.0); Mean Platelet Volume 11.5 fL (9.4-12.4); Platelet Count 209 K/mcL (140-400); Red Cell Distribution Width 16.2 % (11.5-14.5)
[2018-07-13 17:01] LABS: Prothrombin Time 22.9 Seconds (9.4-12.1)
[2018-07-13 17:07] LABS: Heparin anti-factor XA UFH > 2.00 IU/mL (0.30-0.70)
--- NOTE | 2018-07-13 20:09 | Nephrology Progress Note ---
Date of Encounter: 07/13/18 Time of Encounter: 20:06 - Assessment and Plan (1) Acute kidney injury Current Visit: Yes Status: Acute Patient with acute kidney injury of unclear etiology. Suspect acute tubular necrosis versus obstruction given the report of 1 liter PVR. Renal function is slowly improving. Will continue fluid challenge and await serologic work-up. Of note the patient most recent eGFR was April and 16 June this year indicating that this is likely acute on chronic kidney disease. Her urinalysis is benign. Adjust medications for renal function. Avoid nephrotoxins. (2) Urinary retention Current Visit: Yes Status: Acute Report the patient had 1 L postvoid residual. Patient also has bladder wall thickening of unclear etiology. Urology has been consulted. (3) Elevated troponin Current Visit: Yes Status: Acute Per cardiology. Patient s/p CABG. (4) HTN (hypertension) Current Visit: No Status: Chronic Blood pressure is controlled. Qualifiers: Hypertension type: essential hypertension Qualified Code(s): I10 - Essential (primary) hypertension Subjective Principal diagnosis: NORBERT Interval history: Patient seen and evaluated. Her grandson is at bedside. She states she feels better today. She has heartburn when she lays down flat. Her constipation is improved. Objective - Vital Signs Vital signs: Vital Signs Temp Pulse Resp BP Pulse Ox 07/13/18 15:10 97.7 F 52 18 156/61 90 07/13/18 11:16 18 91 07/13/18 11:09 98.0 F 52 18 156/51 84 07/13/18 07:11 97.8 F 52 18 145/66 92 07/13/18 05:04 98.0 F 52 16 121/67 91 07/13/18 00:02 98.4 F 54 16 141/52 92 07/12/18 21:08 98.1 F 48 18 123/64 90 07/12/18 20:37 90 Intake and Output 07/13/18 07/13/18 07/13/18 07:59 15:59 23:59 Intake Total 1000 / 1000 120 / 120 1000 / 1000 Output Total 200 / 200 400 / 400 Balance 800 / 800 -280 / -280 1000 / 1000 Intake: IV Fluids 1000 / 1000 1000 / 1000 Sodium Bicarbonate 75 MEQ In 0. 1000 / 1000 1000 / 1000 45% Sodium Chloride 1000 Ml 1000 Ml 1,000 ML @ 75 mls/hr IVC .[id number] [facility] Rx#:[id number] Oral 120 / 120 0 / 0 Output: Catheter 200 / 200 400 / 400 Other: Meal Lunch Dinner Percent of Meal Consumed 0% 0% Weight 81.7 kg Blood Glucose* 78 109 Patient Weight 07/13/18 23:59 Weight 81.7 kg - General Appearance General appearance: Present: well-developed, well-nourished EENT: Present: ATNC Neck: Present: supple Cardiology: Present: regular rate Integumentary: Present: warm and dry Neurologic: Present: alert and oriented x3 Psychiatric: Present: mood/affect appropriate - Lab 07/13/18 16:35 07/13/18 04:05 Most recent lab results ABG pH 7.48 pH Units (7.32-7.45) H 07/13/18 14:08 ABG pCO2 28 mmHg (35-45) L 07/13/18 14:08 ABG pO2 59 mmHg (85-104) L 07/13/18 14:08 ABG HCO3 21 mEq/L (21-27) 07/13/18 14:08 ABG O2 Saturation 93 % (95-98) L 07/13/18 14:08 Calcium 8.3 mg/dL (8.6-10.3) L 07/13/18 04:05 Phosphorus 4.2 mg/dL (2.7-4.5) 07/11/18 10:52 Magnesium 2.8 mg/dL (1.6-2.6) H 07/11/18 10:52 Urine Creatinine 62 mg/dL 07/11/18 16:20 Urine Sodium 60.0 mEq/L 07/11/18 16:20 - VTE Reasons for not Prescribing Prophylaxis: Not indicated-Anticoagulated or INR therapeutic Consult Discharge Plan - Plan Referrals: Benny Pabon DO [Primary Care Provider] -
[2018-07-13] MEDS: Insulin DETEMIR 100 UNIT/ML X5UNITS SQ SCH (21:59)
[2018-07-14 00:36] LABS: Basophils % 0.2 %; Eosinophils % 0.1 %; Hematocrit 26.4 % (35.3-44.9); Hemoglobin 8.4 g/dL (11.5-15.4); Immature Granulocytes % 0.4 % (0-4); Lymphocytes # 1.1 K/mcL (0.6-4.6); Lymphocytes % 11.1 %; Mean Corpuscular HGB Conc 31.8 g/dL (31.6-35.5); Mean Corpuscular Hemoglobin 26.3 pg (28.0-33.3); Mean Corpuscular Volume 82.8 fL (83.0-100.0); Mean Platelet Volume 11.3 fL (9.4-12.4); Monocytes # 0.8 K/mcL (0.0-1.3); Monocytes % 8.1 %; Neutrophils # 7.7 K/mcL (1.6-8.9); Nucleated Red Blood Cells 0.4 /100 WBC (0); Platelet Count 220 K/mcL (140-400); Red Blood Count 3.19 M/mcL (3.82-4.97); Red Cell Distribution Width 16.2 % (11.5-14.5); Segmented Neutrophils % 80.1 %
[2018-07-14] MEDS: Acetaminophen 325 MG TABLET PO PRN ×2 (00:36→20:22)
[2018-07-14 01:00] LABS: Albumin 3.4 g/dL (3.5-5.7); Calcium 8.4 mg/dL (8.6-10.3); Phosphorous 3.5 mg/dL (2.7-4.5); Potassium 4.8 mEq/L (3.5-5.1)
[2018-07-14 02:03] LABS: Hepatitis B Core IgM Nonreactive (Nonreactive); Hepatitis B Surface Antigen Nonreactive (Nonreactive); Hepatitis C Virus Antibody Nonreactive (Nonreactive)
[2018-07-14 02:06] LABS: Hepatitis A Antibody IgM Reactive (Nonreactive)
[2018-07-14] MEDS ORDERED: Ipratropium/Albuterol Neb 3 ML IH PRN (06:18)
[2018-07-14] MEDS ORDERED: Ipratropium/Albuterol Neb 3 ML ONE (06:23)
[2018-07-14 07:40] LABS: Troponin I 0.33 ng/mL (< 0.04)
[2018-07-14] MEDS ORDERED: D5% in Water 1,000 ML IVC PRN (08:17)
[2018-07-14] MEDS ORDERED: Dextrose Gel 15 GM/37.5 ML TUBE PO PRN ×2 (08:17)
[2018-07-14] MEDS ORDERED: *HR* Dextrose 50 % in Water (Syg) 50 ML SYRINGE IVP PRN (08:17)
[2018-07-14] MEDS: amLODIPine 5 MG TABLET PO SCH (11:36)
[2018-07-14] MEDS: Aspirin Enteric Coated 81 MG Tablet PO SCH (11:36)
--- NOTE | 2018-07-14 12:23 | Nephrology Progress Note ---
Date of Encounter: 07/14/18 Time of Encounter: 12:21 - Assessment and Plan (1) Acute kidney injury Current Visit: Yes Status: Acute Patient with acute kidney injury of unclear etiology. Suspect acute tubular necrosis versus obstruction given the report of 1 liter PVR. Renal function is slowly improving. Scr is 2/71 today improved. GFR is 17 improved from 14. Of note the patient most recent eGFR was April and 16 June this year indicating that this is likely acute on chronic kidney disease. Her urinalysis is benign. Adjust medications for renal function. Avoid nephrotoxins. (2) Elevated troponin Current Visit: Yes Status: Acute Per cardiology. Patient s/p CABG. (3) HTN (hypertension) Current Visit: No Status: Chronic Blood pressure is controlled 129/55. Qualifiers: Qualified Code(s): I10 - Essential (primary) hypertension (4) Urinary retention Current Visit: Yes Status: Acute Report the patient had 1 L postvoid residual. Patient also has bladder wall thickening of unclear etiology. Urology has been consulted. Subjective Principal diagnosis: NORBERT Interval history: Pt seen and examined, doing well. Objective - Vital Signs Vital signs: Vital Signs Temp Pulse Resp BP Pulse Ox 07/14/18 07:13 98.3 F 56 16 129/55 94 07/14/18 06:27 14 96 07/14/18 04:03 99.6 F 61 16 148/65 92 07/14/18 00:07 100.3 F H 64 18 149/68 93 07/13/18 20:32 98.9 F 50 16 146/65 94 07/13/18 15:10 97.7 F 52 18 156/61 90 Intake and Output 07/13/18 07/14/18 07/14/18 23:59 07:59 15:59 Intake Total 1000 / 1000 30 / 30 Output Total 800 / 800 Balance 1000 / 1000 -770 / -770 Intake: IV Fluids 1000 / 1000 Sodium Bicarbonate 75 MEQ In 0. 1000 / 1000 45% Sodium Chloride 1000 Ml 1000 Ml 1,000 ML @ 75 mls/hr IVC .[id number] [facility] Rx#:[id number] Oral 0 / 0 30 / 30 Output: Urine 0 / 0 Catheter 800 / 800 Other: Meal Dinner Percent of Meal Consumed 0% Stool Size Large Stool Consistency formed Stool Color Brown # Bowel Movements 1 Weight 81.4 kg Blood Glucose* 110 92 Patient Weight 07/14/18 23:59 Weight 81.4 kg - General Appearance General appearance: Present: well-developed, well-nourished EENT: Present: ATNC, hearing intact, vision intact Neck: Present: supple Respiratory: Present: clear Cardiology: Present: edema (+2 pitting edema noted to bilat lower extremitis. ) , normal S1, normal S2 Gastrointestinal: Present: normoactive bowel sounds, no tenderness, no guarding Integumentary: Present: no rash, warm and dry, erythema (Noted to RLE, warm to touch.) Neurologic: Present: alert and oriented x3 Psychiatric: Present: mood/affect appropriate, cooperative - Lab 07/14/18 00:26 07/14/18 00:26 Most recent lab results ABG pH 7.48 pH Units (7.32-7.45) H 07/13/18 14:08 ABG pCO2 28 mmHg (35-45) L 07/13/18 14:08 ABG pO2 59 mmHg (85-104) L 07/13/18 14:08 ABG HCO3 21 mEq/L (21-27) 07/13/18 14:08 ABG O2 Saturation 93 % (95-98) L 07/13/18 14:08 Calcium 8.4 mg/dL (8.6-10.3) L 07/14/18 00:26 Phosphorus 3.5 mg/dL (2.7-4.5) 07/14/18 00:26 Magnesium 2.8 mg/dL (1.6-2.6) H 07/11/18 10:52 Urine Creatinine 62 mg/dL 07/11/18 16:20 Urine Sodium 60.0 mEq/L 07/11/18 16:20 - VTE Reasons for not Prescribing Prophylaxis: Not indicated-Anticoagulated or INR therapeutic Consult Discharge Plan - Plan Referrals: Benny Pabon DO [Primary Care Provider] -
--- NOTE | 2018-07-14 12:58 | Internal Med Progress Note ---
Hospitalist Progress Note - Encounter Date of Encounter: 07/14/18 Time of Encounter: 09:16 - Subjective Interval History: Patient seen and examined this morning. Complained of nausea. Denies fevers chills or diarrhea. Breathing same as yesterday. Had BM with some dewayne blood in toilet bowl. She mentions she has hemorrhoids. - Exam Vitals: Temp Pulse Resp BP Pulse Ox 98.3 F 56 16 129/55 94 07/14/18 07:13 07/14/18 07:13 07/14/18 07:13 07/14/18 07:13 07/14/18 07:13 Exam: Constitutional: in no distress, On 2 L HEENT: PEARLA, No JVD, No lymphadenopathy CVS: S1, S2 normal, No MRG, bradycardic, regular rhythm RS: Air entry equal, Crackles at bases ABdomen: Soft, Non-tender, distended Extremities: faint rash noted on Rt leg anterior just above ankle, 1+ pedal edema Skin : No ulcer or other rash noted. Neuro: Cranial nerve gross normal, Motor and sensory exam grossly unremarkable, AOx3 Psych: alert, poor insight. - Assessment and Plan (1) Acute kidney injury Current Visit: Yes Status: Acute (2) Hyperkalemia Current Visit: Yes Status: Acute (3) HTN (hypertension) Current Visit: No Status: Chronic (4) CAD (coronary artery disease) Current Visit: Yes Status: Acute (5) Elevated troponin Current Visit: Yes Status: Acute (6) History of atrial fibrillation Current Visit: Yes Status: Acute (7) Urinary retention Current Visit: Yes Status: Acute - Summary of Assessment and Plan Summary of Assessment and Plan: Acute kidney injury - possibly obstructive vs ATN. Unclear exact etiology. Likely acute on CKD given decreased GFR in April - c/w insert mendoza. Renal following. - Renal function slowly improving. - Hepatitis IgM positive. await serologic workup for SELENA, Complement, CK, ANCA, Protein electrophoresis, RF. - Strict. I/O - Retroperitoneal US-No evidence of hydronephrosis. Rt kidney is slightly smaller than the left. Diffuse urinary bladder wall thickening. - Avoid Nephrotoxins. Anemia - Drop of 2 points in Hb since 07/09. Has h/o hemorrhoids. Was on anticoagulation for AFib. - GI consulted. Started on clear liquid diet. May get colonoscopy tommorrow. Shortness of breath - Possible multifactorial from anemia and possible chf - Saturating well on 2 L - Will hold IVFs. - f/u CXR given her exam Hyperkalemia - Likely from renal failure - Now resolved. - c/w patient on tele. coronary artery disease - Recently CABG. Patient on Amiodarone with sinus bradycardia. Will obtain cardio consultation to adjust medication if needed. - On apixaban at home for Afib. Will continue for now. Bradycardia - Possibly related to ARF. - Unlikely from amiodarone per cardio. But is held due to abnormal LT and TSH. - She has upcoming appointment to establish with [facility]. - HR better now. Elevated LFT - Asymptomatic - RUQ US unremarkable. - Hepatitis IgM positive. - likely from Hepatitis. Paroxysmal AFib - Post opt after bypass. Patient placed on amio and Eliquis. - Amiodarone is being stopped given elevated LFT and TSH. - Eliquis held given ARF. Will resume when renal function normalizes. - Continue aspirin for now. - F/u DVT study as she is off AC and elevated D-dimer. HTN - c/w amlodipine Elevated troponin - Likely related to ARF. - Possible contributing factor of CHF. Will get Echocardiogram. - Will trend daily. DVT ppx - Will use EPCD once DVT study negative. - Time Spent with Patient Total time spent is greater than 50% in coordination of care (as documented) at patient's floor/unit and/or counseling patient: Internal Medicine: Result - Labs CBC & Chem 7: 07/14/18 00:26 07/14/18 00:26 Labs: Short CBC 07/13/18 07/14/18 Range/Units 16:35 00:26 WBC 9.0 9.6 (4.3-11.1) K/mcL Hgb 8.3 L 8.4 L (11.5-15.4) g/dL Hct 25.6 L 26.4 L (35.3-44.9) % Plt Count 209 220 (140-400) K/mcL Neutrophils # 7.7 (1.6-8.9) K/mcL BMP 07/14/18 00:26 Sodium 131 L Potassium 4.8 Chloride 101 Carbon Dioxide 19 L BUN 57 H Creatinine 2.71 H Glucose 106 H Calcium 8.4 L Cardiac Enzymes 07/13/18 07/13/18 07/14/18 Range/Units 15:05 18:12 00:26 Troponin I 0.19 H* 0.21 H* 0.20 H* (< 0.04) ng/mL 07/14/18 Range/Units 06:52 Troponin I 0.33 H* (< 0.04) ng/mL Liver Function 07/14/18 Range/Units 00:26 Albumin 3.4 L (3.5-5.7) g/dL - ABG Interpretation ABG results: ABG ABG pH 7.48 pH Units (7.32-7.45) H 07/13/18 14:08 ABG pCO2 28 mmHg (35-45) L 07/13/18 14:08 ABG pO2 59 mmHg (85-104) L 07/13/18 14:08 ABG O2 Saturation 93 % (95-98) L 07/13/18 14:08 PT/INR, D-dimer PT 22.9 Seconds (9.4-12.1) H 07/13/18 16:35 D-Dimer 1119 ng/mLFEU (0-500) H 07/13/18 15:05 - Impressions Impressions Chest X-Ray 07/13/18 11:49 IMPRESSION: Findings suggesting developing acute congestive heart failure with probable trace effusions and basilar atelectasis. D/ / 07/13/2018 13:00:03 Benjamin Celaya MD / dean Interpreting Provider: Benjamin Celaya MD Abdomen Ultrasound 07/14/18 10:00 IMPRESSION: 1. No convincing finding to account for patient's symptoms. Specifically, there is no evidence of cholelithiasis or cholecystitis. 2. Mild increased periportal echogenicity. Finding is nonspecific but can be associated with hepatitis in some patients. D/ / 07/14/2018 11:18:38 Josh Casas MD / Jeri Woodward Interpreting Provider: Josh Casas MD - VTE Reasons for not Prescribing Prophylaxis: Not indicated-Anticoagulated or INR therapeutic Consult Discharge Plan - Plan Referrals: Benny Pabon DO [Primary Care Provider] - (3) HTN (hypertension) Qualifiers: Hypertension type: essential hypertension Qualified Code(s): I10 - Essential (primary) hypertension
[2018-07-14] MEDS: Insulin DETEMIR 100 UNIT/ML X5UNITS SQ SCH (20:20)
[2018-07-15 05:26] LABS: Basophils % 0.3 %; Eosinophils # 0.2 K/mcL (0.0-0.6); Eosinophils % 3.1 %; Hematocrit 26.1 % (35.3-44.9); Hemoglobin 8.5 g/dL (11.5-15.4); Lymphocytes % 14.3 %; Mean Corpuscular HGB Conc 32.6 g/dL (31.6-35.5); Mean Corpuscular Hemoglobin 26.6 pg (28.0-33.3); Mean Corpuscular Volume 81.8 fL (83.0-100.0); Mean Platelet Volume 10.8 fL (9.4-12.4); Monocytes # 0.6 K/mcL (0.0-1.3); Monocytes % 8.4 %; Neutrophils # 5.2 K/mcL (1.6-8.9); Nucleated Red Blood Cells 0.6 /100 WBC (0); Platelet Count 230 K/mcL (140-400); Red Blood Count 3.19 M/mcL (3.82-4.97); Red Cell Distribution Width 16.5 % (11.5-14.5); Segmented Neutrophils % 72.9 %
[2018-07-15 05:49] LABS: Calcium 8.3 mg/dL (8.6-10.3); Potassium 4.2 mEq/L (3.5-5.1)
[2018-07-15 05:52] LABS: Troponin I 0.37 ng/mL (< 0.04)
[2018-07-15 09:36] LABS: Complement Component 3 91 mg/dL (88-201); Complement Component 4 34 mg/dL (10-40)
--- NOTE | 2018-07-15 10:01 | Nephrology Progress Note ---
Date of Encounter: 07/15/18 Time of Encounter: 09:53 - Assessment and Plan (1) Acute kidney injury Current Visit: Yes Status: Acute Patient with acute kidney injury of unclear etiology. Suspect acute tubular necrosis versus obstruction given the report of 1 liter PVR. Renal function is slowly improving. Scr is improved at 2.25. GFR improved at 21. We will sign off at this time, please reconsult if needed. Followup with Dr. Bishop in 4-6 weeks with a BMP 1 week after discharge. Of note the patient most recent eGFR was April and 16 June this year indicating that this is likely acute on chronic kidney disease. Her urinalysis is benign. Adjust medications for renal function. Avoid nephrotoxins. (2) Elevated troponin Current Visit: Yes Status: Acute Per cardiology. Patient s/p CABG. (3) HTN (hypertension) Current Visit: No Status: Chronic Blood pressure is controlled 151/63. Qualifiers: Hypertension type: essential hypertension Qualified Code(s): I10 - Essential (primary) hypertension (4) Urinary retention Current Visit: Yes Status: Acute Report the patient had 1 L postvoid residual. Patient also has bladder wall thickening of unclear etiology. Urology has been consulted. Subjective Principal diagnosis: NORBERT Interval history: Pt seen and examined is not feeling well today. Objective - Vital Signs Vital signs: Vital Signs Temp Pulse Resp BP Pulse Ox 07/15/18 07:29 98.2 F 61 17 151/63 93 07/15/18 04:37 99.2 F 60 16 154/67 90 07/14/18 23:55 97.9 F 57 16 146/71 96 07/14/18 15:24 98.5 F 54 18 133/68 93 Intake and Output 07/14/18 07/15/18 07/15/18 23:59 07:59 15:59 Intake Total 240 / 240 0 / 0 Output Total 400 / 400 Balance -160 / -160 0 / 0 Intake: Oral 240 / 240 0 / 0 Output: Catheter 400 / 400 Other: Meal Dinner NPO Percent of Meal Consumed 0% Stool Size Moderate Stool Consistency liquid Stool Color Brown # Bowel Movement Diapers 1 Weight 82 kg Blood Glucose* 160 154 - General Appearance General appearance: Present: well-developed, well-nourished EENT: Present: ATNC, hearing intact, vision intact Neck: Present: supple Respiratory: Present: clear Cardiology: Present: edema (+1 pitting edema noted to bilat lower extremities.) , normal S1, normal S2 Gastrointestinal: Present: normoactive bowel sounds, no tenderness, no guarding Integumentary: Present: no rash, warm and dry Neurologic: Present: alert and oriented x3 Psychiatric: Present: mood/affect appropriate, cooperative - Lab 07/15/18 05:03 07/15/18 05:03 Most recent lab results ABG pH 7.48 pH Units (7.32-7.45) H 07/13/18 14:08 ABG pCO2 28 mmHg (35-45) L 07/13/18 14:08 ABG pO2 59 mmHg (85-104) L 07/13/18 14:08 ABG HCO3 21 mEq/L (21-27) 07/13/18 14:08 ABG O2 Saturation 93 % (95-98) L 07/13/18 14:08 Calcium 8.3 mg/dL (8.6-10.3) L 07/15/18 05:03 Phosphorus 3.5 mg/dL (2.7-4.5) 07/14/18 00:26 Magnesium 2.8 mg/dL (1.6-2.6) H 07/11/18 10:52 Urine Creatinine 62 mg/dL 07/11/18 16:20 Urine Sodium 60.0 mEq/L 07/11/18 16:20 - VTE Reasons for not Prescribing Prophylaxis: Not indicated-Anticoagulated or INR therapeutic Consult Discharge Plan - Plan Instructions: Chronic Hypertension (DC) Referrals: Alexsander Bishop MD [Partnered Physician] - 08/13/18 11:20 am (Please follow up as schedule in [facility]) Benny Pabon DO [Primary Care Provider] - 07/22/18 10:00 am (Please follow up as schedule....) Frankie Khalil MD [Partnered Physician] - 07/31/18 3:30 pm (Please follow up as schedule in [facility]hash...)
[2018-07-15] MEDS: Aspirin Enteric Coated 81 MG Tablet PO SCH (10:02)
[2018-07-15] MEDS: amLODIPine 5 MG TABLET PO SCH (10:02)
[2018-07-15] MEDS: Acetaminophen 325 MG TABLET PO PRN (10:04)
--- NOTE | 2018-07-15 12:02 | Discharge Summary ---
- NOTES TO OUTPATIENT PROVIDER Notes to Outpatient Provider: Patient with history of afib was admitted for acute on chronic kidney failure likely secondary to obstructive cause versus ATN. Improved with IV fluids and Morales catheter. No findinsg compatible with UTI nor US did not show any evidence of hydronephrosis. Her eliquis is held in view of elevated creatinine -> can be restarted as outpatient or may have to consider warfarin. To follow with nephrology in 4-6 weeks with BMP 1 week after discharge. Also to follow with urology for voiding trial in office. Of note, eliquis was held due to AoCKD and amiodarone was held as she initially presented with bradycardia and she also had deranged LFT/thyroid function test. Her anticoagulation may have to be switched to warfarin depending on the course of recovery. Also, amiodarone may need to be substituted with bb if she runs into RVR. Orders not resulted at time of discharge: Pending orders 07/12/18 12:21 MPO/PR3 (ANCA) Antibodies DAILY 07/13/18 04:05 SELENA IgG GALO rflx IFA AM 0400 Protein Electrophoresis AM 0400 07/13/18 16:35 Stool guiac [Occult Blood,Stool] [BF] Routine Date of Encounter: 07/15/18 Time of Encounter: 10:00 - Discharge Diagnosis (1) Acute kidney injury Priority: Primary Status: Acute (2) History of atrial fibrillation Priority: Secondary Status: Acute (3) Hyperkalemia Priority: Secondary Status: Acute (4) Elevated troponin Priority: Secondary Status: Acute (5) HTN (hypertension) Priority: Secondary Status: Chronic Qualifiers: Hypertension type: essential hypertension Qualified Code(s): I10 - Essential (primary) hypertension (6) CAD (coronary artery disease) Priority: Secondary Status: Acute Qualifiers: Coronary Disease-Associated Artery/Lesion type: [place] artery [place] vs. transplanted heart: [place] heart Associated angina: without angina Qualified Code(s): I25.10 - Atherosclerotic heart disease of [place] coronary artery without angina pectoris (7) Urinary retention Priority: Secondary Status: Acute Hospital course: Ms. Powell is a 78 year old female with PMHx of afib was admitted for acute on chronic kidney failure likely secondary to obstructive cause versus ATN. Improved with IV fluids and Morales catheter. No findinsg compatible with UTI nor US did not show any evidence of hydronephrosis. Her eliquis is held in view of elevated creatinine -> can be restarted as outpatient or may have to consider warfarin. To follow with nephrology in 4-6 weeks with BMP 1 week after discharge. Also to follow with urology for voiding trial in office. Of note, eliquis was held due to AoCKD and amiodarone was held as she initially presented with bradycardia and she also had deranged LFT/thyroid function test. Her anticoagulation may have to be switched to warfarin depending on the course of recovery. Also, amiodarone may need to be substituted with bb if she runs into RVR. Discharge discussed with: patient, family, nurse, social work - Time Spent with Patient Total time spent providing and/or coordinating discharge services: Greater than 30 minutes - Discharge Medications Home Medications: Amlodipine Besylate 10 mg PO DAILY 07/11/18 [History] Aspirin Enteric Coated [Aspirin EC] 162 mg PO DAILY 07/11/18 [History] Atorvastatin [Lipitor] 40 mg PO HS 07/11/18 [History] Guaifenesin [Mucinex] 1,200 mg PO BID PRN 07/11/18 [History] Insulin ASPART [NovoLOG] 10 units SQ TIDWM 07/11/18 [History] Insulin DETEMIR [Levemir] 26 units SQ HS 07/11/18 [History] Lansoprazole [Prevacid] 30 mg PO DAILY 07/11/18 [History] Oxybutynin Chloride [Ditropan Xl] 10 mg PO DAILY 07/11/18 [History] Sitagliptin Phosphate [Januvia] 50 mg PO HS 07/11/18 [History] Allergies/Adverse Reactions: 3 Allergy/AdvReac Type Severity Reaction Status Date / Time Procaine [From Novocain] Allergy See Verified 07/11/18 11:56 Comments Date of admission: 07/11/18 17:01 Primary care physician: Benny Pabon DO Consults: 07/12/18 10:49 Consult to Urology [CONS] Routine Consulting Provider: Urology Bridget Reason for Consult: urinary retention Call Completed: Yes - Constitutional Vitals: Temp Pulse Resp BP Pulse Ox 98.2 F 61 17 151/63 93 07/15/18 07:29 07/15/18 07:29 07/15/18 07:29 07/15/18 07:29 07/15/18 07:29 General appearance: Present: A&O X 2 Exam: Genera: not in distress CVS: S1, S2 normal, regular rhythm RS: Air entry equal ABdomen: Soft, Non-tender, distended Psych: alert, poor insight. - Patient Status Disposition: Home Health Service Condition: Fair Overall status at discharge: patient is progressing back to baseline - Discharge Instructions Instructions: Chronic Hypertension (DC) Follow Up With: Alexsander Bishop MD [Partnered Physician] - 08/13/18 11:20 am (Please follow up as schedule in Subhash) Benny Pabon DO [Primary Care Provider] - 07/22/18 10:00 am (Please follow up as schedule....) Frankie Khalil MD [Partnered Physician] - 07/31/18 3:30 pm (Please follow up as schedule in Subhash...) - Diet and Activity Activity: resume usual activities as tolerated Diet: advance to your usual diet, diabetic diet - VTE Reasons for not Prescribing Prophylaxis: Not indicated-Anticoagulated or INR therapeutic
--- NOTE | 2018-07-15 12:11 | Physician Discharge Referral ---
Home Health/Hosp Referral Info Transfer to: Home Health - Diagnosis (1) Acute kidney injury Priority: Primary Status: Acute (2) History of atrial fibrillation Priority: Secondary Status: Acute (3) Hyperkalemia Priority: Secondary Status: Acute (4) Elevated troponin Priority: Secondary Status: Acute (5) HTN (hypertension) Priority: Secondary Status: Chronic (6) CAD (coronary artery disease) Priority: Secondary Status: Acute (7) Urinary retention Priority: Secondary Status: Acute - Respiratory Orders Smoking Cessation: Smoking cessation has been advised. For more information, call the [place] Tobacco Quit Line at 2-444-FDJKNOW. - Services Needed Following services are medically necessary services: Home Health Aide, Physical Therapy - Transfer Medications Home Medications: Amlodipine Besylate 10 mg PO DAILY 07/11/18 [History] Aspirin Enteric Coated [Aspirin EC] 162 mg PO DAILY 07/11/18 [History] Atorvastatin [Lipitor] 40 mg PO HS 07/11/18 [History] Guaifenesin [Mucinex] 1,200 mg PO BID PRN 07/11/18 [History] Insulin ASPART [NovoLOG] 10 units SQ TIDWM 07/11/18 [History] Insulin DETEMIR [Levemir] 26 units SQ HS 07/11/18 [History] Lansoprazole [Prevacid] 30 mg PO DAILY 07/11/18 [History] Oxybutynin Chloride [Ditropan Xl] 10 mg PO DAILY 07/11/18 [History] Sitagliptin Phosphate [Januvia] 50 mg PO HS 07/11/18 [History] Allergies/Adverse Reactions: 3 Allergy/AdvReac Type Severity Reaction Status Date / Time Procaine [From Novocain] Allergy See Verified 07/11/18 11:56 Comments Certification: Further, I certify that my clinical findings support that this patient is homebound (i.e. absences from home require considerable and taxing effort and are for medical reasons or confucianist services or infrequently or short duration when for other reasons) because: Homebound Reason: Patient requires assistance of a person or device to safely leave home Attestation: My signature below is to certify that this patient is under my care and that I, or nurse practitioner, or a physician's client account assistant working with me, has a face-to -face encounter with this patient.
[2018-07-15 12:17] VITALS: BP 152/71
--- NOTE | 2018-07-15 13:26 | Gastroenterology Consult Note ---
<Anthony Christensen - Last Filed: 07/15/18 13:24> Date of Encounter: 07/15/18 Time of Encounter: 10:40 - Assessment and plan (1) Anemia Status: Acute Assessment and plan: Hgb 10.3 on 07/09 with MCV 84, on admission Hgb 9.5, and this AM Hgb 8.5 with MCV 81.8. Iron low at 12. Continue to monitor CBC and transfuse PRBC as needed. Recommend EGD and colonoscopy to evaluate her anemia. Patient refused EGD and colonoscopy. Qualifiers: Anemia type: iron deficiency Iron deficiency anemia type: unspecified iron deficiency Qualified Code(s): D50.9 - Iron deficiency anemia, unspecified (2) BRBPR (bright red blood per rectum) Status: Acute Assessment and plan: Pt reported one episode of BRBPR, recommend colonoscopy, but patient refused. (3) Hepatitis A Status: Acute Assessment and plan: Her LFTs were elevated on admission with AST 49 and ALT 93. Hepatitis A positive on 07/13. RUQ US showed mild increased periportal echogenicity, which is nonspecific but can be associated with hepatitis in some patients. Continue to monitor LFTs. Qualifiers: Hepatic coma status: without hepatic coma Qualified Code(s): B15.9 - Hepatitis A without hepatic coma - Time Spent With Patient Total time spent is greater than 50% in coordination of care (as documented) at patient's floor/unit and/or counseling patient: GI History of Present Illness - Data of Consult Patient: new to practice Consult date: 07/15/18 Requesting Physician: Frank Caruso MD - Consult Narrative Reason for consult: anemia History of present illness: Ms. Powell is a 78 year old female with PMHx of DM, HTN, CAD, CABG 02/2018, CHF who was admitted due to abnormal labs showing worsening kidney function. Patient reports that she has experienced worsening SOB and difficulty with voiding since her CABG. She also admits to nausea, vomiting, fatigue. She denies fever, chills, chest pain, abdominal pain, diarrhea, or constipation. Patient reports one episode of bright red blood per rectum. We have been consulted to evaluate her anemia and BRBPR. Hgb 10.3 on 07/09, on admission Hgb 9.5, and this AM Hgb 8.5. Her LFTs were elevated on admission with AST 49 and ALT 93. Hepatitis A positive on 07/13. RUQ US showed mild increased periportal echogenicity, which is nonspecific but can be associated with hepatitis in some patients. Procedures: Colonoscopy 7 years ago at [facility], normal per patient report. NSAIDs: ASA Anticoagulation: Eliquis Past Med Surg Social Fam HX - Past Medical History Medical history: diabetes, hypertension Psychiatric history: no psych history - Past Surgical History Surgical History: coronary bypass (CABG) Additional surgical history: triple bypass - Social History Smoking Status: Never smoker Smokeless Tobacco Status: No Alcohol use: none Drug use: none - Family History Father History Unknown: Yes Mother Hx Family Cardiac Disorders: Yes (Cardiac disease) - Gastrointestinal Gastrointestinal: Present: as per HPI - Constitutional Constitutional: as per HPI - EENT Eyes: as per HPI Ears: Present: as per HPI Nose, mouth and throat: Present: as per HPI - Cardiovascular Cardiovascular ROS: Present: as per HPI - Respiratory Respiratory IM: Present: as per HPI - Genitourinary Genitourinary: Absent: change in color, Urinary frequency - Neurological ROS Neurological GI: Present: as per HPI - Hematologic/Lymphatic Hematologic/Lymphatic pediatric: Present: as per HPI - Musculoskeletal Musculoskeletal ROS GI: Present: as per HPI - Integumentary Integumentary GI: Present: as per HPI - Psychiatric ROS Psychiatric GI: Present: as per HPI - Endocrine Endocrine IM: Present: as per HPI - Constitutional Vitals: Temp Pulse Resp BP Pulse Ox 98.1 F 78 18 152/71 93 07/15/18 12:15 07/15/18 12:15 07/15/18 12:15 07/15/18 12:15 07/15/18 12:15 General appearance: Present: cooperative, A&O X 3, no acute distress, answers questions appropriately - Head Head exam: Present: atraumatic, normocephalic - Eye Eye exam: Present: normal appearance, sclera anicteric - ENT ENT exam: Present: mucous membranes dry - Neck Neck exam general surgery: Present: normal inspection, trachea midline - Respiratory Respiratory exam: Present: decreased breath sounds, CTAB - Cardiovascular Cardiovascular exam: Present: RRR, +S1, +S2 - GI/Abdominal GI/Abdominal exam: Present: soft, no peritoneal signs. Absent: distended, firm , guarding, tenderness - Rectal Rectal exam: Present: deferred - Extremities Exam Extremities exam: Present: warm - Neurological Exam Neurological exam: Present: no focal deficits - Psychiatric Psychiatric exam: Present: normal affect, normal mood - Skin Skin exam: Present: dry, intact, normal color, warm Results - Labs CBC & Chem 7: 07/15/18 05:03 07/15/18 05:03 Labs: Last Result Calcium 8.3 mg/dL (8.6-10.3) L 07/15/18 05:03 Iron 12 mcg/dL (50-170) L 07/14/18 06:52 % Saturation 5 % (15-50) L 07/14/18 06:52 Transferrin 189 mg/dL (203-362) L 07/14/18 06:52 Troponin I 0.37 ng/mL (< 0.04) H* 07/15/18 05:03 Entire Visit Hgb 8.5 g/dL (11.5-15.4) L 07/15/18 05:03 Hct 26.1 % (35.3-44.9) L 07/15/18 05:03 PT 22.9 Seconds (9.4-12.1) H 07/13/18 16:35 Total Bilirubin 0.3 mg/dL (0.3-1.0) 07/11/18 16:33 AST 49 Units/L (13-39) H 07/11/18 16:33 ALT 93 Units/L (7-52) H 07/11/18 16:33 - ABG ABG results: ABG ABG pH 7.48 pH Units (7.32-7.45) H 07/13/18 14:08 ABG pCO2 28 mmHg (35-45) L 07/13/18 14:08 ABG pO2 59 mmHg (85-104) L 07/13/18 14:08 ABG O2 Saturation 93 % (95-98) L 07/13/18 14:08 PT/INR, D-dimer PT 22.9 Seconds (9.4-12.1) H 07/13/18 16:35 D-Dimer 1119 ng/mLFEU (0-500) H 07/13/18 15:05 - Impressions Impressions Chest X-Ray 07/14/18 10:29 IMPRESSION: Improving congestive changes compared to the prior study. D/ / Jonathan Ponce / Jonathan Ponce Interpreting Provider: Jonathan Ponce Echocardiogram 07/14/18 13:41 Impressions: LVEF 60-65%. Normal LV chamber size and function. Asymmetric hypertrophy of the basal septum. No LVOT obstruction. Moderate left ventricular diastolic dysfunction. Right ventricle appeared mildly dilated with normal function. Mild aortic regurgitation. Mild mitral regurgitation. Mild tricuspid regurgitation. Severe pulmonary hypertension. Estimated RVSP is 59 mmHg. Left Ventricular Wall Motion: Rest Echo Findings All wall segments showed normal motion. Findings: Study Quality * Technically adequate exam. ECG Findings * Sinus rhythm with BBB. Left Ventricle * LVEF 60-65%. * Normal LV chamber size and function. * Asymmetric hypertrophy of the basal septum. No LVOT obstruction. * Moderate left ventricular diastolic dysfunction. Right Ventricle * Right ventricle appeared mildly dilated with normal function. Left Atrium * Moderately dilated left atrium. Right Atrium * Mildly dilated right atrium. Aortic Valve * Trileaflet aortic valve. * Mildly sclerotic aortic valve leaflets. * Mild aortic regurgitation. * No aortic stenosis. Mitral Valve * Mildly thickened mitral valve leaflets. * Mild mitral regurgitation. * No mitral stenosis. Tricuspid Valve * Normal tricuspid valve structure. * Mild tricuspid regurgitation. * Severe pulmonary hypertension. * Estimated RVSP is 59 mmHg. * Estimated RA pressure is 5 mmHg. Pulmonic Valve * Normal pulmonic valve structure and function. * Trace pulmonic regurgitation. Aorta * Normally sized aortic root. Pericardium * There is a trivial pericardial effusion present. IVC * Normal IVC dimensions and inspiratory collapse. Pulmonary Artery * Normal visualized portions of the main pulmonary artery. Consult Discharge Plan - Plan Instructions: Chronic Hypertension (DC) Referrals: Alexsander Bishop MD [Partnered Physician] - 08/13/18 11:20 am (Please follow up as schedule in Subhash) Benny Pabon DO [Primary Care Provider] - 07/22/18 10:00 am (Please follow up as schedule....) Frankie Khalil MD [Partnered Physician] - 07/31/18 3:30 pm (Please follow up as schedule in Subhash...) <Sarah Calvillo - Last Filed: 07/15/18 17:32> Date of Encounter: 07/15/18 Time of Encounter: 15:00 - Time Spent With Patient Total time spent is greater than 50% in coordination of care (as documented) at patient's floor/unit and/or counseling patient: GI History of Present Illness - Data of Consult Requesting Physician: Frank Caruso MD - Consult Narrative History of present illness: Ms. Powell is a 78 year old female - Constitutional Vitals: Temp Pulse Resp BP Pulse Ox 98.1 F 78 18 152/71 93 07/15/18 12:15 07/15/18 12:15 07/15/18 12:15 07/15/18 12:15 07/15/18 12:15 Results - Labs CBC & Chem 7: 07/15/18 05:03 07/15/18 05:03 Labs: Last Result Calcium 8.3 mg/dL (8.6-10.3) L 07/15/18 05:03 Iron 12 mcg/dL (50-170) L 07/14/18 06:52 % Saturation 5 % (15-50) L 07/14/18 06:52 Transferrin 189 mg/dL (203-362) L 07/14/18 06:52 Troponin I 0.37 ng/mL (< 0.04) H* 07/15/18 05:03 Entire Visit Hgb 8.5 g/dL (11.5-15.4) L 07/15/18 05:03 Hct 26.1 % (35.3-44.9) L 07/15/18 05:03 PT 22.9 Seconds (9.4-12.1) H 07/13/18 16:35 Total Bilirubin 0.9 mg/dL (0.3-1.0) 07/15/18 05:03 AST 28 Units/L (13-39) 07/15/18 05:03 ALT 61 Units/L (7-52) H 07/15/18 05:03 - ABG ABG results: ABG ABG pH 7.48 pH Units (7.32-7.45) H 07/13/18 14:08 ABG pCO2 28 mmHg (35-45) L 07/13/18 14:08 ABG pO2 59 mmHg (85-104) L 07/13/18 14:08 ABG O2 Saturation 93 % (95-98) L 07/13/18 14:08 PT/INR, D-dimer PT 22.9 Seconds (9.4-12.1) H 07/13/18 16:35 D-Dimer 1119 ng/mLFEU (0-500) H 07/13/18 15:05 - Impressions Impressions Echocardiogram 07/14/18 13:41 Impressions: LVEF 60-65%. Normal LV chamber size and function. Asymmetric hypertrophy of the basal septum. No LVOT obstruction. Moderate left ventricular diastolic dysfunction. Right ventricle appeared mildly dilated with normal function. Mild aortic regurgitation. Mild mitral regurgitation. Mild tricuspid regurgitation. Severe pulmonary hypertension. Estimated RVSP is 59 mmHg. Left Ventricular Wall Motion: Rest Echo Findings All wall segments showed normal motion. Findings: Study Quality * Technically adequate exam. ECG Findings * Sinus rhythm with BBB. Left Ventricle * LVEF 60-65%. * Normal LV chamber size and function. * Asymmetric hypertrophy of the basal septum. No LVOT obstruction. * Moderate left ventricular diastolic dysfunction. Right Ventricle * Right ventricle appeared mildly dilated with normal function. Left Atrium * Moderately dilated left atrium. Right Atrium * Mildly dilated right atrium. Aortic Valve * Trileaflet aortic valve. * Mildly sclerotic aortic valve leaflets. * Mild aortic regurgitation. * No aortic stenosis. Mitral Valve * Mildly thickened mitral valve leaflets. * Mild mitral regurgitation. * No mitral stenosis. Tricuspid Valve * Normal tricuspid valve structure. * Mild tricuspid regurgitation. * Severe pulmonary hypertension. * Estimated RVSP is 59 mmHg. * Estimated RA pressure is 5 mmHg. Pulmonic Valve * Normal pulmonic valve structure and function. * Trace pulmonic regurgitation. Aorta * Normally sized aortic root. Pericardium * There is a trivial pericardial effusion present. IVC * Normal IVC dimensions and inspiratory collapse. Pulmonary Artery * Normal visualized portions of the main pulmonary artery. - Attending Attestation I have personally performed a face to face evaluation on this patient. I have reviewed and agree with the care plan. History and Exam by me shows: P seen. Denies any abdominal symptoms. On exam abdomen is benign. Assessment : patient with anemia multifactorial. Recommendation: Patient to follow with GI as an outpatient and then will consider EGD colonoscopy as an outpatient
[2018-07-15 14:05] LABS: Albumin 3.2 g/dL (3.5-5.7); Albumin/Globulin Ratio 1.1 (1.1-2.2); Bilirubin,Direct 0.3 mg/dL (0.0-0.2); Bilirubin,Indirect 0.6 mg/dL (0.0-1.2); Bilirubin,Total 0.9 mg/dL (0.3-1.0); Total Protein 6.2 g/dL (6.4-8.9)
--- NOTE | 2018-07-16 07:45 | Electrocardiograph Report ---
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
[2018-07-16 08:35] LABS: Alpha 2 Globulin (PEP) 0.75 g/dL (0.48-1.05); Beta Globulin (PEP) 0.68 g/dL (0.48-1.10)
[2018-07-16 10:57] LABS: Myeloperoxidase Ab 0 AU/mL (0-19); Serine Protease-3 Antibody 2 AU/mL (0-19)
[2018-07-16 10:58] LABS: ANA IgG by ELISA NONE DETECTED (None Detected)
[2018-07-16 11:10] LABS: IFE Reflexed NOT DONE
== END 2018-07-15 15:54 | disposition home health service (06) | DRG 683 ==
LOC: 2ANU 10:14 → EMEROOARM 10:14 → 2ANU 14:09 → SUATTDRO 17:01
PROVIDERS: ADMIT Internal Medicine; ATTEND Internal Medicine